=== PATIENT | female | born 1995 | race Caucasian/White ===

== ENCOUNTER → 2018-08-09 16:11 | Outpatient (CLI) | payer MEDICAID, SELFPAY ==
[2018-08-15 14:30] LABS: HPV Reflexed? NOT INDICATED
== END ==
PROVIDERS: Family Provider Family Medicine; PCP Family Medicine; Referring Provider Obstetrics & Gynecology; Visit Provider Obstetrics & Gynecology
DX: Z12.4 Encounter for screening for malignant neoplasm of cervix (principal)
CPT/HCPCS: 88175; G0145

== ENCOUNTER → 2019-05-13 14:40 | Outpatient (CLI) | payer OTHER, SELFPAY ==
[2019-05-13 07:40] VITALS: BMI 20.9
== END ==
PROVIDERS: Family Provider Family Medicine; PCP Family Medicine; Referring Provider Physician Assistant Surgical; Visit Provider Physician Assistant Surgical
DX: J02.9 Acute pharyngitis, unspecified (principal)
CPT/HCPCS: 87070; 87077; 87186

== ENCOUNTER → 2020-03-02 15:03 | Outpatient (CLI) | payer OTHER, SELFPAY ==
[2020-03-02 14:09] VITALS: BMI 20.9
[2020-03-02 16:32] LABS: Absolute Neutrophil Count 9.6 X10^3/uL (2.0-7.7); Basophil# 0.05 X10^3/uL; Basophil% 0.4 % (0-1); Eosinophil# 0.05 X10^3/uL; Eosinophils% 0.4 % (0-5); Hematocrit 39.7 % (37-47); Hemoglobin 13.9 g/dL (12.0-15.0); Lymphocyte % 15.1 % (19-41); Mean Corpuscular Volume 91.3 fL (81-99); Monocyte# 0.94 X10^3/uL; Monocyte% 7.5 % (0-10); NRBC Flagged by Analyzer 0 % (0-5); Neutrophil # 9.57 X10^3/uL (2.7-7.7); Neutrophil % 76.2 % (47-70); Platelet Count 285 K/mm3 (150-450); RBC Distribution Width CV 11.3 % (11.6-14.6); RBC Distribution Width SD 37.6 fl (35.1-43.9); Red Blood Count 4.35 M/mm3 (4.2-5.4); White Blood Count 12.6 K/mm3 (4.4-11.0)
[2020-03-02 18:45] LABS: Amphetamine Urine VISTA NEGATIVE (<1000 ng/mL); Barbiturate Urine VISTA NEGATIVE (< 200 ng/mL); Benzodiazepine Urine VISTA NEGATIVE (< 200 ng/mL); Cocaine Urine VISTA NEGATIVE (< 300 ng/mL); Ecstacy Urine VISTA NEGATIVE (< 500 ng/mL); Methadone Urine VISTA NEGATIVE (< 300 ng/mL); PCP Urine VISTA NEGATIVE (< 25 ng/mL); THC Urine VISTA NEGATIVE (< 50 ng/mL); Vista UDS pH Range 6
[2020-03-02 21:40] LABS: Chlamydia Trachomatis by PCR Negative (Negative); Neisserai gonorrhoeae by PCR Negative (Negative); Probe Check PASS; Sample Adequacy Control PASS; Specimen Processing Control PASS
[2020-03-03 10:53] LABS: HIV - WCH Non-Reactive (Nonreactive); Hepatitis B Surface Antigen Non-Reactive (Nonreactive); Hepatitis C Antibody Non-Reactive (Nonreactive); Rubella IgG 0.2 IU/mL
[2020-03-04 03:25] LABS: Rapid Plasmin Reagin (RPR) NONREACTIVE (NONREACTIVE)
[2020-03-08 12:45] LABS: HPV Reflexed? NOT INDICATED
== END ==
PROVIDERS: PCP Family Medicine; Referring Provider Obstetrics & Gynecology; Visit Provider Obstetrics & Gynecology
DX: Z34.90 Encounter for supervision of normal pregnancy, unspecified, unspecified trimester (principal)
CPT/HCPCS: 36415; 80307; 85025; 86592; 86703; 86762; 86803; 86850; 86900; 86901; 87086; 87088; 87340; 87491; 87591; 88175; G0145

== ENCOUNTER → 2020-04-30 16:16 | Outpatient (CLI) | payer OTHER, SELFPAY ==
[2020-04-02 14:43] VITALS: BMI 20.9
[2020-04-30 15:35] VITALS: BMI 20.9
--- NOTE | 2020-04-30 16:18 | US_ITS ---
STUDY: SECOND AND THIRD TRIMESTER OBSTETRICAL ULTRASOUND REASON FOR EXAM: Female, 24 years old ANATOMY LMP: TECHNIQUE: Transabdominal TECHNICAL QUALITY: Adequate. PRIOR ULTRASOUND: None. FINDINGS: There is a single intrauterine fetus. The fetus is in a breech presentation. There is demonstrated cardiac activity with a heart rate of 155 bpm. There is a normal amniotic fluid volume. The largest amniotic fluid pocket measures 3.6 x 7.8 cm.The placenta is anterior and fundal There are Grade 0 placental changes. The cervix measures 3 cm in length. The bilateral adnexal regions are normal. BIOMETRY: BPD: 4.29 cm: 18 weeks, 6 days HC: 5.52 cm: 19 weeks, 2 days AC: 16.6 cm: 19 weeks, 0 days FL: 2.75 cm: 18 weeks, 2 days CI: 0.77 FL/BPD: 0.64 FL/HC: FL/AC: 0.20 HC/AC: 1.22 age by current US: 18 weeks, 4 days. JENNIFFER by current US: 09/27/2020. Estimated weight: 258 grams, +/- 39 grams, 58 %. age by prior US: weeks, days. JENNIFFER by prior US: . Age by LMP: 19 weeks, 6 days. JENNIFFER by LMP: 09/18/2020. ANATOMY: Cranium: Normal lateral ventricles. Normal choroid plexus. Normal cerebellum. Normal cisterna magna. Normal face, nose and lips. Chest: Normal 4-chamber heart. Abdomen/Pelvis: Normal diaphragm. Normal stomach. Normal abdominal wall. Normal cord insertion. Normal 3 vessel cord. Normal kidneys. Normal bladder. Spine: Normal cervical spine. Normal thoracic spine. Normal lumbar spine. Normal sacrum. Extremities: Normal bilateral upper extremities. Normal bilateral lower extremities. US/OB Anatomy Scan IMPRESSION: Viable intrauterine gestation approximately 18-19 weeks gestational age currently in breech position. No gross anomalies Electronically Signed: Herbert Mancuso MD at 18:02 EDT , Service support ,
== END ==
PROVIDERS: PCP Family Medicine; Referring Provider Obstetrics & Gynecology; Visit Provider Obstetrics & Gynecology
DX: O23.40 Unspecified infection of urinary tract in pregnancy, unspecified trimester (principal); Z3A.00 Weeks of gestation of pregnancy not specified
CPT/HCPCS: 76805; 87086; 87088

== ENCOUNTER → 2020-06-25 14:43 | Outpatient (CLI) | payer OTHER, SELFPAY ==
[2020-05-28 14:38] VITALS: BMI 20.9
[2020-06-25 15:05] LABS: Absolute Lymphocyte Count 1.53 X10^3/uL (0.83-4.51); Absolute Neutrophil Count 8.1 X10^3/uL (2.0-7.7); Basophil# 0.03 X10^3/uL; Basophil% 0.3 % (0-1); Eosinophil# 0.02 X10^3/uL; Eosinophils% 0.2 % (0-5); Hematocrit 35.1 % (37-47); Hemoglobin 12.2 g/dL (12.0-15.0); Lymphocyte # 1.53 X10^3/ul (4.0); Mean Corp Hgb Conc 34.8 g/dL (32-36); Mean Corpuscular Volume 92.1 fL (81-99); Monocyte# 0.44 X10^3/uL; Monocyte% 4.3 % (0-10); NRBC Flagged by Analyzer 0 % (0-5); Neutrophil # 8.14 X10^3/uL (2.7-7.7); Neutrophil % 79.8 % (47-70); Platelet Count 242 K/mm3 (150-450); RBC Distribution Width CV 12.1 % (11.6-14.6); RBC Distribution Width SD 40.5 fl (35.1-43.9); Red Blood Count 3.81 M/mm3 (4.2-5.4); White Blood Count 10.2 K/mm3 (4.4-11.0)
[2020-06-25 15:10] LABS: Glucose Challenge Gest 1H 50g 186 mg/dL (70-140)
== END ==
PROVIDERS: PCP Family Medicine; Referring Provider Obstetrics & Gynecology; Visit Provider Obstetrics & Gynecology
DX: Z13.1 Encounter for screening for diabetes mellitus (principal); Z34.90 Encounter for supervision of normal pregnancy, unspecified, unspecified trimester
CPT/HCPCS: 36415; 82950; 85025

== ENCOUNTER → 2020-07-05 06:51 | Outpatient (CLI) | payer OTHER, SELFPAY ==
[2020-06-25 15:21] VITALS: BMI 28.5
[2020-07-05 07:52] LABS: Glucose GTT-Gestation. Fasting 103 mg/dL (<105)
[2020-07-05 08:50] LABS: Glucose GTT-Gestational 1 Hr 218 mg/dL (<190)
[2020-07-05 10:05] LABS: Glucose GTT-Gestational 2 Hr 169 mg/dL (<165)
[2020-07-05 11:21] LABS: Glucose GTT-Gestational 3 Hr 85 L (<145)
== END ==
PROVIDERS: Referring Provider Obstetrics & Gynecology; Visit Provider Obstetrics & Gynecology
DX: O99.810 Abnormal glucose complicating pregnancy (principal); Z3A.00 Weeks of gestation of pregnancy not specified
CPT/HCPCS: 36415; 82951; 82952

== ENCOUNTER → 2020-07-23 13:19 | Outpatient (CLI) | payer OTHER, SELFPAY ==
[2020-07-09 16:14] VITALS: BMI 29.4
--- NOTE | 2020-07-23 13:22 | US_ITS ---
STUDY: SECOND AND THIRD TRIMESTER OBSTETRICAL ULTRASOUND - LIMITED REASON FOR EXAM: Female, 25 years old GROWTH LMP: 12/13/2019. PRIOR ULTRASOUND: Comparison is made with prior ultrasound dated 04/30/2020. TECHNIQUE: Transabdominal TECHNICAL QUALITY: Adequate. FINDINGS: There is a single intrauterine fetus. The fetus is in a cephalic presentation. There is demonstrated cardiac activity with a heart rate of 155 bpm. There is a normal amniotic fluid volume. The largest amniotic fluid pocket measures 6.47 cm. The amniotic fluid index (PAULETTE) is 16.55 cm. The placenta is anterior in location and is not low lying. There are Grade 1 placental changes. The cervix measures 3.6 cm in length. BIOMETRY: BPD: 8.02 cm: 32 weeks, 1 days HC: 20.28 cm: 31 weeks, 0 days AC: 25.51 cm: 32 weeks, 3 days FL: 5.64 cm: 29 weeks, 4 days Age by LMP: 31 weeks, 6 days. JENNIFFER by LMP: 09/18/2020. age by prior US: 30 weeks, 4 days. JENNIFFER by prior US: 09/27/2020. age by current US: 30 weeks, 6 days. JENNIFFER by current US: 09/25/2020. Estimated weight: 1776 grams, +/- 263 grams, 25 percentile. US/OB Limited With Biometrics IMPRESSION: Single live uterine gestation with a mean gestational age of 30 weeks and 4 days. The measurements obtained today following within the normal expected range. Electronically Signed: Anish Goodwin, at 15:17 EST , Service support ,
== END ==
PROVIDERS: Referring Provider Obstetrics & Gynecology; Visit Provider Obstetrics & Gynecology
DX: O24.419 Gestational diabetes mellitus in pregnancy, unspecified control (principal); Z3A.30 30 weeks gestation of pregnancy
CPT/HCPCS: 76816

== ENCOUNTER → 2020-08-06 15:12 | Outpatient (CLI) | payer OTHER, SELFPAY ==
[2020-08-06 14:37] VITALS: BMI 30.7
[2020-08-06 16:05] LABS: Absolute Lymphocyte Count 2.02 X10^3/uL (0.83-4.51); Absolute Neutrophil Count 8.8 X10^3/uL (2.0-7.7); Basophil# 0.03 X10^3/uL; Basophil% 0.3 % (0-1); Eosinophil# 0.04 X10^3/uL; Eosinophils% 0.3 % (0-5); Hemoglobin 12.6 g/dL (12.0-15.0); Lymphocyte # 2.02 X10^3/ul (4.0); Lymphocyte % 16.8 % (19-41); Mean Corp Hgb Conc 34.1 g/dL (32-36); Mean Corpuscular Hgb 30.8 pg (27.0-32.0); Mean Corpuscular Volume 90.5 fL (81-99); Mean Platelet Vol. 9.2 fl (6.2-12.0); Monocyte# 1.03 X10^3/uL; Monocyte% 8.6 % (0-10); NRBC Flagged by Analyzer 0 % (0-5); Neutrophil # 8.83 X10^3/uL (2.7-7.7); Neutrophil % 73.6 % (47-70); Platelet Count 274 K/mm3 (150-450); RBC Distribution Width CV 12.2 % (11.6-14.6); RBC Distribution Width SD 39.3 fl (35.1-43.9); Red Blood Count 4.09 M/mm3 (4.2-5.4)
[2020-08-06 16:25] LABS: ALB/GLOB Ratio 0.7 RATIO (0.9-2.4); AST(SGOT) 18 U/L (15-37); Alanine Aminotransfer ALT/SGPT 33 U/L (13-56); Albumin, Serum 2.6 g/dL (3.2-5.0); Alkaline Phosphatase 139 U/L (45-117); Anion Gap 7 (5-15); BUN 12 mg/dL (7-18); BUN/Creat Ratio 17.4 RATIO (10-20); Calcium,Total 8.6 mg/dL (8.5-10.1); Chloride 108 mmol/L (98-107); Creatinine, Serum 0.69 mg/dL (0.55-1.02); EST Glomerular Filtration Rate 110 mL/min (>60); Est Glom Filt Rate - Afr Amer 133 mL/min (>60); Globulin 3.7 g/dL (2.2-4.2); Glucose 86 mg/dL (74-106); Potassium 4.5 mmol/L (3.5-5.1); Protein, Total 6.3 g/dL (6.4-8.2); Sodium Level 139 mmol/L (136-145)
[2020-08-06 16:26] LABS: Protein, Urine (Random) 18.3 mg/dL (<11.9); Protein:Creat Ratio 185 mg/g CRE (0-200)
== END ==
PROVIDERS: Referring Provider Obstetrics & Gynecology; Visit Provider Obstetrics & Gynecology
DX: O16.3 Unspecified maternal hypertension, third trimester (principal); Z3A.00 Weeks of gestation of pregnancy not specified
CPT/HCPCS: 36415; 80053; 82570; 84156; 85025

== ENCOUNTER → 2020-08-19 08:58 | Outpatient (CLI) | payer OTHER, SELFPAY ==
[2020-07-09 16:14] VITALS: BMI 29.4
[2020-08-06 14:37] VITALS: BMI 30.7
--- NOTE | 2020-08-19 08:59 | US_ITS ---
STUDY: SECOND AND THIRD TRIMESTER OBSTETRICAL ULTRASOUND - LIMITED REASON FOR EXAM: Female, 25 years old growth LMP: 12/13/2019 PRIOR ULTRASOUND: 07/23/2020 TECHNIQUE: Transabdominal TECHNICAL QUALITY: Adequate. FINDINGS: There is a single intrauterine fetus. The fetus is in a cephalic presentation. There is demonstrated cardiac activity with a heart rate of 162 bpm. There is a normal amniotic fluid volume. The largest amniotic fluid pocket measures 6.5 cm. The amniotic fluid index (PAULETTE) is 15.9 cm. The placenta is anterior in location and is not low lying. There are Grade 1 placental changes. The cervix measures cm in length. BIOMETRY: BPD: 8.5 cm: 34 weeks, 2 days HC: 31.1 cm: 34 weeks, 5 days AC: 32.0 cm: 35 weeks, 6 days FL: 6.3 cm: 32 weeks, 4 days Age by LMP: 35 weeks, 5 days. JENNIFFER by LMP: 09/18/2020. age by current US: 34 weeks, 3 days. JENNIFFER by current US: . Estimated weight: 2510 grams, +/- 371 grams, 23 percentile. Gender: US/OB Limited With Biometrics IMPRESSION: Living intrauterine of 34 weeks 3 days as described above. Electronically Signed: Lukas Bass MD at 13:14 EST Tel , Service support ,
== END ==
PROVIDERS: Referring Provider Obstetrics & Gynecology; Visit Provider Obstetrics & Gynecology
DX: O24.419 Gestational diabetes mellitus in pregnancy, unspecified control (principal); Z3A.00 Weeks of gestation of pregnancy not specified
CPT/HCPCS: 76816

== ENCOUNTER → 2020-08-24 16:59 | Outpatient (CLI) | payer OTHER, SELFPAY ==
[2020-08-19 11:02] VITALS: BMI 31.4
== END ==
PROVIDERS: Referring Provider Obstetrics & Gynecology; Visit Provider Obstetrics & Gynecology
DX: Z34.90 Encounter for supervision of normal pregnancy, unspecified, unspecified trimester (principal); Z3A.36 36 weeks gestation of pregnancy
CPT/HCPCS: 87081

== ENCOUNTER → 2020-09-10 17:34 | Outpatient (CLI) | payer OTHER, SELFPAY ==
[2020-08-19 11:02] VITALS: BMI 31.4
[2020-09-10 14:42] VITALS: BMI 32.2
[2020-09-10 16:00] LABS: Protein, Urine (Random) 48.7 mg/dL (<11.9); Protein:Creat Ratio 205 mg/g CRE (0-200)
== END ==
PROVIDERS: Referring Provider Obstetrics & Gynecology; Visit Provider Obstetrics & Gynecology
DX: O12.10 Gestational proteinuria, unspecified trimester (principal); Z3A.00 Weeks of gestation of pregnancy not specified
CPT/HCPCS: 82570; 84156; 87635; C9803; U0003

== ENCOUNTER 2020-09-21 19:00 | Inpatient (IN) | payer OTHER, SELFPAY ==
[2020-08-19 11:02] VITALS: BMI 31.4
[2020-09-10 14:42] VITALS: BMI 32.2
[2020-09-21 19:28] VITALS: TEMP 37; O2SAT 96
[2020-09-21 19:29] VITALS: BP 139/92; PULSE 96; O2SAT 96
[2020-09-21] MEDS: Lactated Ringers 1,000 ML 50 ML IV (19:40)
--- NOTE | 2020-09-21 19:45 | HP.PCM_ITS ---
- Problem List (1) 36 weeks gestation of Status: Acute Comment: electronic test ordered 08/24/20 (scheduled 09/10/20 @ 4:30) (2) COVID-19 affecting , antepartum Status: Acute Comment: baby ASA (3) GDM (gestational diabetes mellitus) Status: Acute Qualifiers: Comment: Referred to endo. Declines shredder tender consult. Discussed growths q4 weeks. Discussed testing if requires medication. Timing of delivery dependent on diabetic control. (4) Influenza vaccination declined Status: Acute (5) Status: Acute Qualifiers: Comment: genetic, carrier, and ntd screening declined. (6) Rubella non-immune status, antepartum Status: Acute Comment: Needs vaccine PP. (7) Supervision of normal Status: Acute Qualifiers: Comment: PRR Boy! Ewa JENNIFFER 09/18/20 Steve (8) UTI (urinary tract infection), affecting care of mother, antepartum Status: Acute Comment: Repeat urine culture neg History and Physical Date of Admission: 09/21/20 Intake Vital Signs 09/10/20 Height 5 ft 3 in 09/10/20 Weight: 182 lb 09/10/20 BP 114/82 H Intake Visit Reasons: 39 WK OB Chief Complaint: est ob Police Commanding Officer Required: No Is patient in pain?: No Allergies No Known Allergies Allergy (Verified 09/10/20 14:42) Medications vitamin#30 30 mg iron-10 mg iron-folic acid 1 mg-omg3 capsule cap PO 03/02/20 history Confirmed 09/10/20 ondansetron HCl 4 mg tablet 4 mg PO Q8H PRN #60 tab 06/28/20 Rx Confirmed 09/10/20 famotidine 20 mg tablet 20 mg PO BID #60 tab 07/09/20 Rx Confirmed 09/10/20 Last Menstral Period: 12/13/19 Zika: Zika virus screening: Negative : No PFSH PFSH Medical History HPV test positive (Acute) History of abnormal cervical Pap smear (Acute) Family History Father No problems noted. Unknown Diabetes Social History (Updated 09/10/20 @ 15:[address] Luisa Boykin MD) Smoking Status: Never smoker alcohol intake: never substance use type: former substance user caffeine: No what type of physical activity do you participate in: none seatbelt use: always do you feel safe at home: Yes additional social history: Steve- Works for [employer] Patient is a career education teacher Pregancy History 1 Elective abortions Hx Para Spontaneous abortions Hx # Term Pregnancies Ectopic pregnancies Hx # Pregnancies Multiple births # of living children HPI 39 WK OB: Details: KONSTANTIN POE is a 25 year old at 40 weeks presents for induction of labor secondary to GDM A1 well-controlled. Patient recently had an asymptomatic positive Covid test but has been over 10 days since the initial test positivity and is asymptomatic currently. OB Visit JENNIFFER Calculator Estimated Delivery Date Method Current WG Current Estimate 09/18/20 LMP (Certain) 38w 6d Other Estimates 09/24/20 Ultrasound #1 38w 0d Expected Delivery Route/Plan plan IOL by 40 weeks Labor Preferences- CB/BF classes: 08/21/20 labor support person: labor intervention preferences: pain management options preferred: cut cord/dad catch: : PP control planned: discussed possible routes of delivery and associated risks: special requests: Specific Issue/Plans flu vaccine: declines tdap vaccine: Declines rhogam: NA LARC form signed: 06/26 - declines Problem list reviewed and updated with the most current plan of care details and appropriate orders placed. Relevant counseling for the gestational age provided. Continue routine care and follow up unless otherwise noted in visit notes/problem list details Initial Weight: 131 lb Date EGA Weight BP Urine Prot Glucose FHR FuHt Pres Dilation Effaced St Visit Note 03/02/20 11w 3d 131 lb (+0 oz) 120/80 180 SM- CRL 3.7cm cons with lmp SM- CRL 3.7cm cons with lmp, abdominal US 04/02/20 15w 6d 141 lb 8 oz (+10 lb 8 oz) 108/70 Negative Negative 155 GP - denies cramping and bleeding. Patient to schedule anatomy scan. 04/30/20 19w 6d 151 lb 8 oz (+20 lb 8 oz) 130/74 Negative Negative 150 GP - denies cramping and bleeding. Anatomy scan today. Finding out gender. 05/28/20 23w 6d 156 lb 4 oz (+25 lb 4 oz) 130/74 Negative Negative 140 24 GP- denies ctx, LOF, VB, DFM. Having a boy! Considering Ewa for name. GCT next visit. 06/25/20 27w 6d 161 lb 4 oz (+30 lb 4 oz) 128/80 Negative Negative 140 28 GP -no LOF, VB, DFM, ctx. Discussed failed GCT - 3h GCT ordered. Declines TDAP. GP -no LOF, VB, DFM, ctx. Discussed failed GCT - 3h GCT ordered. Declines TDAP. LARC form signed. 07/09/20 29w 6d 167 lb (+36 lb) 122/78 Negative Negative 140 30 GP - no LOF, VB, DFM, ctx. Failed 3h GTT. Seeing Dr. Ramos today. Discussed management of GDM. Discussed surveillance. Discussed timing of delivery. 07/23/20 31w 6d 169 lb 6 oz (+38 lb 6 oz) 120/88 Negative Negative 160 32 GP- no LOF, VB, DFM, ctx. BGTs controlled with diet. Going to [employer] this weekend. Scheduled childbirth classes. 08/06/20 33w 6d 173 lb 2 oz (+42 lb 2 oz) 134/94 Negative Negative 150 34 GP - no LOF, VB, DFM, ctx. BGTs well controlled. GP - no LOF, VB, DFM, ctx. BGTs well controlled. Diastolic BP mild range but no proteinuria. Outpatient labs ordered. 08/19/20 35w 5d 177 lb 4 oz (+46 lb 4 oz) 132/100 104/82 Negative Negative 155 35 GP - no LOF, VB, DFM, ctx. BGTs remain well controlled with diet. GP - no LOF, VB, DFM, ctx. BGTs remain well controlled with diet. Initial BP mild range, but repeat normotensive. 08/24/20 36w 3d 112/82 140 36 SM- no vb lof good fm no regular ctx bs well controlled 08/30/20 37w 2d 181 lb (+50 lb) 138/82 Negative Negative 144 37 Cephalic 1 40 MH No VB, LOF. Good FM. BC well con trolled. 09/10/20 38w 6d 182 lb (+51 lb) 114/82 2+ Negative 140 38 Cephalic 1 50 -1 Sm- no vb lof good fm no regular ctx ACOG First Trimester First Trimester: Desire for , Alcohol, Tobacco Cessation, Illicit/Recreational Drug/Substance Use, Intimate Partner Violence, Barriers to care, Unstable Housing, Communication Barriers, Environmental/Work Hazards, Anticipated Course of Care, Toxoplasmosis Precations, Use of Any medications, Sexual activity, Exercise, Dental Care, Sauna/Hot tub use, Seat Belt use, Childbirth classes/Hospital facilities, , Travel, Indications for US and Screening for Aneuploidy Diagnostics Diagnostics Diagnostics Gest Glucose Tolerance MG/DL 07/05/20 Hgb 12.6 g/dL (12.0-15.0) 08/06/20 Hct 37.0 % (37-47) 08/06/20 Details: HIV: Urine Culture: Sequential Screen: NIPT Screen: ROS Const Reports system reviewed and no additional complaints, except as documented Card Reports system reviewed and no additional complaints, except as documented Resp Reports system reviewed and no additional complaints, except as documented GI Reports system reviewed and no additional complaints, except as documented, Reports nausea Reports system reviewed and no additional complaints, except as documented Musc Reports system reviewed and no additional complaints, except as documented all other systems reviewed and negative Exam Const General: cooperative, healthy appearing, comfortable HENTX Head: normal to inspection Nose: external nose normal Face and sinus: normal facial exam Neck Neck: normal visual inspection, full ROM, no lymphadenopathy Thyroid: thyroid normal Chest Chest palpation & inspection: normal inspection of the chest Resp Effort & Inspection: normal respiratory effort GI Inspection: normal to inspection Palpation: soft, other (gravid uterus) Other: vertex and appropriate size for gestational age Other: Cervical Exam: 50/-2 Extrem General: pedal edema Results POC Urinalysis 2 Dip (Clinic) Office Urine Glucose Negative Last Edit by Lisa Porter on 09/10/20 14:4 8 Office Urine Protein 2+ Last Edit by Lisa Porter on 09/10/20 14:48 Assessment & Plan Problems 1. Supervision of normal Z34.90 PRR Boy! Ewa JENNIFFER 09/18/20 Steve 2. UTI (urinary tract infection), affecting care of mother, antepartum O23.40 Repeat urine culture neg 3. Influenza vaccination declined Z28.21 4. GDM (gestational diabetes mellitus) O24.419 Referred to endo. Declines shredder tender consult. Discussed growths q4 weeks. Discussed testing if requires medication. Timing of delivery dependent on diabetic control. 5. 36 weeks gestation of Z3A.36 electronic test ordered 08/24/20 (scheduled 09/10/20 @ 4:30) 6. Z34.90 genetic, carrier, and ntd screening declined. 7. Rubella non-immune status, antepartum O99.891; Z28.3 Needs vaccine PP. Patient presents IOL, plan management for with Cytotec. Pain management: Plans epidural. GBS negative. Management of any complications: None I have reviewed the [facility] and made any clinically relevant updates. Orders Orders: POC Urinalysis 2 Dip (Clinic) Today Protein+Creatinine Ratio,Urine Today O12.10 Coding Level of Care Code OB Routine Diagnoses Supervision of normal Z34.90 UTI (urinary tract infection), affecting care of mother, antepartum O23.40 Influenza vaccination declined Z28.21 GDM (gestational diabetes mellitus) O24.419 36 weeks gestation of Z3A.36 Z34.90 Rubella non-immune status, antepartum O99.891; Z28.3
[2020-09-21 19:56] LABS: Bedside Glucose 93 mg/dL (70-110)
[2020-09-21] MEDS: miSOPROStol 25 MCG TABLET VAGINAL (20:00)
[2020-09-21 20:05] VITALS: BMI 34.9
[2020-09-21 20:05] LABS: Absolute Lymphocyte Count 1.95 X10^3/uL (0.83-4.51); Absolute Neutrophil Count 5.9 X10^3/uL (2.0-7.7); Basophil# 0.02 X10^3/uL; Basophil% 0.2 % (0-1); Eosinophil# 0.02 X10^3/uL; Eosinophils% 0.2 % (0-5); Hematocrit 32.2 % (37-47); Hemoglobin 11.4 g/dL (12.0-15.0); Lymphocyte # 1.95 X10^3/ul (4.0); Lymphocyte % 22.5 % (19-41); Mean Corp Hgb Conc 35.4 g/dL (32-36); Mean Corpuscular Hgb 31.1 pg (27.0-32.0); Mean Platelet Vol. 9.8 fl (6.2-12.0); Monocyte% 9.2 % (0-10); NRBC Flagged by Analyzer 0 % (0-5); Neutrophil # 5.86 X10^3/uL (2.7-7.7); Neutrophil % 67.7 % (47-70); Platelet Count 214 K/mm3 (150-450); RBC Distribution Width SD 41.4 fl (35.1-43.9); Red Blood Count 3.66 M/mm3 (4.2-5.4); White Blood Count 8.7 K/mm3 (4.4-11.0)
[2020-09-21 20:17] VITALS: BP 137/89; PULSE 93
[2020-09-21] MEDS: Lactated Ringers 500 ML 999 ML IV (20:35)
[2020-09-21 21:21] LABS: Bedside Glucose 72 mg/dL (70-110)
[2020-09-21 23:59] VITALS: TEMP 36.7
[2020-09-22] VITALS (65 sets, daily range): BP systolic 111–243; BP diastolic 60–146; PULSE 74–152; TEMP 35.7–38.3; O2SAT 93–100
[2020-09-22] MEDS: miSOPROStol 50 MCG TABLET VAGINAL (00:06)
[2020-09-22 01:11] LABS: Bedside Glucose 90 mg/dL (70-110)
[2020-09-22 05:32] LABS: ROM Internal Control Test YES-OK TO RESULT pt. (Internal QC); ROM Patient Test POSITIVE (Negative)
[2020-09-22 06:31] LABS: Bedside Glucose 77 mg/dL (70-110)
[2020-09-22 07:56] LABS: Bedside Glucose 80 mg/dL (70-110)
[2020-09-22] MEDS: Oxytocin 30 units/NS 500 ml 30 UNITS/500 ML IV.SOLN IV (08:30)
[2020-09-22 12:21] LABS: Bedside Glucose 93 mg/dL (70-110)
[2020-09-22] MEDS: Lactated Ringers 500 ML 999 ML IV ×2 (14:38→23:22)
[2020-09-22] MEDS: Lactated Ringers 1,000 ML 200 ML IV ×2 (15:09→19:27)
[2020-09-22] MEDS: fentaNYL-bupivacaine (epidural) 100 ML BAG EPIDURAL ×2 (15:47→20:55)
[2020-09-22 16:35] LABS: Bedside Glucose 100 mg/dL (70-110)
[2020-09-22] MEDS: Ondansetron 4 MG/2 ML Vial IV (19:23)
[2020-09-22 20:25] LABS: Bedside Glucose 112 mg/dL (70-110)
[2020-09-22] MEDS: 0.9% Saline Lock 10 ML Syringe IV (21:04)
[2020-09-22 23:01] LABS: Bedside Glucose 97 mg/dL (70-110)
[2020-09-22 23:01] LABS: Bedside Glucose 96 mg/dL (70-110)
[2020-09-22 23:36] LABS: Bedside Glucose 90 mg/dL (70-110)
[2020-09-22] MEDS: Acetaminophen 500 MG Tablet PO (23:45)
[2020-09-23] VITALS (60 sets, daily range): BP systolic 99–155; BP diastolic 55–108; PULSE 90–162; RESP 16–21; TEMP 36.5–39.6; O2SAT 83–100
[2020-09-23] LABS: Bedside Glucose 104 mg/dL (70-110)
--- NOTE | 2020-09-23 | PLAC_PTH ---
PATIENT: KONSTANTIN MCLEAN LOC: WP U#:[id number] AGE/SX: 25/F ROOM: WP017 RE09/21/[address]: Dr. Luisa Boykin MD : 1995 BED: 1 DIS: 09/25/2020 SPEC #: [id number] RECD: 09/23/20 09:13 STATUS: VASU REYifan #: [id number] BOB: 09/23/20 00:[address]: Luisa Boykin DEPT: SURGICAL PATHOLOGY RECD BY: Miguel Angel Yarbrough ENTERED: 09/23/20 12:35 SP TYPE: PLACENTA OTHR DR: No Primary Care Phys Tissues: Placenta, NOS Procedures: Surgery Specimen Level V HEADER OPERATION: Primary section PRE-OP DIAGNOSIS: Suspected triple I TISSUE SUBMITTED: Placenta MICROSCOPIC DIAGNOSIS Placenta: Placental disc - third trimester placenta (537 gm). - Moderate acute vasculitis of subamniotic blood vessels. Membranes - moderate to marked acute chorioamnionitis. - Submembranous hematoma. Umbilical cord - three blood vessels and moderate acute funisitis. SJ:earl 09/27/2020 MICROSCOPIC DESCRIPTION Slides are reviewed. GROSS DESCRIPTION SPECIMEN: PLACENTA / CLINICAL INFORMATION: A. Weight: 3.505 kg B. Gestational Age: 40 weeks C. Sex: Male PLACENTAL WEIGHT (POST FIXATION): 537 gm PLACENTAL DIMENSIONS: 20 x 18 x 3 cm PLACENTAL SHAPE: Usual ovoid PLACENTAL WEIGHT FOR GESTATIONAL AGE: Within 10-99th percentile MEMBRANES - Present A. Insertion: Marginal B. Site of rupture from edge: At edge of placental disc C. Color of membrane: Antonio-coleman D. Abnormalities: There is a submembranous hematoma present in the placental disc measuring 9 x 7 x 2 cm. UMBILICAL CORD - Present A. Color: Antonio-coleman B. Insertion: Eccentric C. Length: 53 cm D. Diameter: 1.5 cm E. Number of vessels: Three F. Abnormalities: None PLACENTAL DISC - Present A. Color of surface: Antonio-coleman B. surface abnormalities: None C. Maternal cotyledons: Intact with minimal tears D. Attached retro placental clot: No clot E. Cut surface: Dark red and spongy F. Lesions: None G. Separate clot: Absent SECTIONS SUBMITTED: 1. Umbilical cord ( end notched) 2. Umbilical cord, placental end 3. Membrane roll, hematoma 4. Placental disc, and maternal surfaces 5. Placental disc, and maternal surfaces 6. Placental disc, and maternal surfaces AM:earl 09/24/20 TC:2 CPT: 88102
[2020-09-23] MEDS: Ondansetron 4 MG/2 ML Vial IV ×2 (00:06→06:41)
[2020-09-23 01:06] LABS: Bedside Glucose 105 mg/dL (70-110)
[2020-09-23] MEDS: Lactated Ringers 500 ML 999 ML IV (01:29)
[2020-09-23] MEDS: fentaNYL-bupivacaine (epidural) 100 ML BAG EPIDURAL (01:45)
[2020-09-23] MEDS: Lactated Ringers 1,000 ML 200 ML IV (02:02)
[2020-09-23] MEDS: Sodium Citrate/Citric Acid 30 ML UDC PO (04:00)
[2020-09-23 04:06] LABS: Bedside Glucose 108 mg/dL (70-110)
[2020-09-23 04:06] LABS: Bedside Glucose 104 mg/dL (70-110)
[2020-09-23] MEDS: Methylergonovine 0.2 MG/ML Ampul IM (04:31)
--- NOTE | 2020-09-23 05:10 | PCM.OPRPT ---
Problem List (1) COVID-19 affecting , antepartum Status: Acute Comment: baby ASA (2) 36 weeks gestation of Status: Acute Comment: electronic test ordered 08/24/20 (scheduled 09/10/20 @ 4:30) (3) GDM (gestational diabetes mellitus) Status: Acute Qualifiers: Comment: Referred to endo. Declines business applications specialist consult. Discussed growths q4 weeks. Discussed testing if requires medication. Timing of delivery dependent on diabetic control. (4) Rubella non-immune status, antepartum Status: Acute Comment: Needs vaccine PP. (5) Influenza vaccination declined Status: Acute (6) UTI (urinary tract infection), affecting care of mother, antepartum Status: Acute Comment: Repeat urine culture neg (7) Status: Acute Qualifiers: Comment: genetic, carrier, and ntd screening declined. (8) Supervision of normal Status: Acute Qualifiers: Comment: PRR Boy! Ewa JENNIFFER 09/18/20 Steve Delivery Classification: GABRIELA Final JENNIFFER: 09/18/20 Gestational age: 40 Weeks and 5 Days superintendent construction: Zeyad Mac Type of Anesthesia:: Epidural Special Medications: Ampicillin, Gentamicin, clindamycin Date of Procedure: 09/23/20 Pre-Operative Diagnosis: Term , induction of labor for diet-controlled gestational diabetes, suspected intrapartum intraamniotic infection, failed forceps delivery Post-Operative Diagnosis: Same Indications: 25-year-old at 40 weeks gestation admitted for induction of labor for diet-controlled gestational diabetes. During labor, she developed signs and symptoms of infection and was started on antibiotics for suspected intrapartum intraamniotic infection. The patient became complete and began pushing. tachycardia was noted to become progressively worse into the 190s with minimal variability. Patient was pushing with good maternal effort, but minimal descent had initially been noted. Recommendation was made to proceed with a trial of a forceps assisted vaginal delivery. Forceps were applied and 1 contraction with 3 pulls was attempted and no descent was noted. The recommendation was made to proceed with a primary . The risk, benefits, indications, and alternatives to the procedure were discussed with the patient including bleeding, infection, and both visceral or vascular injury. She voiced understanding and agreed to proceed Indications for : Nonreassuring Status, Failed forceps extraction, Suspected chorioamnionitis (Suspected Triple I) Description of Procedure: Patient had tachycardia into the 190s with minimal variability. Recommendation was made to proceed with a forceps assisted vaginal delivery. The maternal bladder had just been changed and Appiah catheter was removed. Additional help was called to the room. Coppersmith Helper was called to the room. Anesthesia level was found to be adequate. Angel-Kelsey forceps were applied without difficulty and placement was noted to be correct. 1 contraction and 3 pulls were attempted and no descent was noted. The recommendation was made to proceed with the primary . The patient was transferred to the operating room. Epidural was dosed for spinal anesthesia without difficulty. Appiah catheter was placed. The patient was placed in the dorsal supine position with leftward tilt. Patient was prepped and draped in the normal sterile fashion. Pfannenstiel skin incision was made with the scalpel and carried through to the underlying layer of fascia with the scalpel. Fascia was nicked in the midline and the incision extended laterally. The rectus bellies were dissected off superiorly and inferiorly with out complication both sharply and bluntly. The peritoneum was entered digitally. The incision was stretched and a low transverse uterine incision was made with the scalpel. The head was noted to be occiput posterior and asynclitic at this time. The 's head was delivered atraumatically followed by the anterior and posterior shoulders without complication the rest of the delivered. The cord was clamped and cut and the infant was handed off to awaiting nurse. The placenta was delivered spontaneously immediately following and was noted to be intact and have a three-vessel cord. The uterus was exteriorized cleared of all clots and debris, and the incision was closed in a double layer closure using #1 Monocryl. Uterine atony was noted and a dose of Methergine was given. Tone was then noted to improve significantly. The ovaries and fallopian tubes were noted to be within normal limits. The uterus was returned to the maternal abdomen and gutters were cleared of all clots and debris. The peritoneum was closed with 3-0 Monocryl in a running fashion. Gloves were changed prior to fascial closure. Fascia was closed with 0 PDS in a running fashion. Subcutaneous tissue was copiously irrigated and the skin was closed with 3-0 Monocryl in a subcuticular fashion. Mepilex dressing was applied without complication. Patient was taken to recovery in stable condition. Amniotic Membrane Rupture Type: Spontaneous Amniotic Fluid Description: Clear Placenta Disposition: Sent to Pathology Specimen(s) sent to pathology: Placenta Drain: Appiah to straight drain Fluids Replaced: 600 Cord Entanglement: None Cord Vessel Description: 3 Vessels Esitmated Blood Loss (ml): 500 Gender: Male Delayed cord clamping: No Antibiotic Given: Clindamycin 600mg IV x1 and Gentamicin 1.5mg/kg IV x1 Pt instructed on risks of surgery: Bleeding, Anesthesia Risks, Infection, Injury to surrounding structure(s) including bowel and bladder Complications: None - Admit VTE Documentation VTE Present on Admission: No VTE Mechan Device Prophylaxis: SCD's VTE Pharm Prophylaxis ordered?: Yes Multi Select Codes - Urinary/Genital Urinary/Genital CPT Codes: 06645 Delivery [facility]
--- NOTE | 2020-09-23 05:19 | DCINST_ITS ---
Discharge Diet: No Restrictions Discharge Activity: May Not Drive - for 2 weeks or while taking narcotic pain meds., May Shower, May Take a Tub Bath - in 7 days. May resume sexual activity in: 4-6 weeks Lifting Restrictions: 20 pounds Additional Activity Instructions:: Nothing in the vagina for 4-6 weeks. You may return to work/school in 6 weeks. Call your doctor if your incision/area has: Continuous Slow Oozing, Sudden Increased Bleeding, Increased Pain/ Swelling, Increased Redness, Foul Smelling Discharge Call your doctor if you observe: Fever of 101 or Higher Suture Line Care: Avoid Pulling/Pushing, Avoid Pinching/Bending Additional Instructions: If you experience any of the following, contact your healthcare provider. * Bleeding that soaks a pad every hour for 2 hours * Fever 100.4 or higher * Unrelieved incision or abdominal pain * Swelling, redness, discharge or bleeding from your incision or episiotomy site * Your incision begins to separate * Problems urinating (including inability to urinate or burning while urinating). * Visual changes * Severe headache * Flu-like symptoms * Pain or redness in one of both of your breasts * Pain, warmth, tenderness or swelling in your legs, especially the calf area * Frequent nausea and vomiting * Symptoms of depression or anxiety If you experience any of the following, call 911 or go to the nearest Emergency Room. * Chest pain * Problems breathing * Seizure activity * Partial or complete paralysis of a body part, slurred speech, weakness or drooping of the face, or a sudden inability to walk or hold your balance Allergies/Adverse Reactions: Allergies No Known Allergies Allergy (Verified 09/10/20 14:42) Medications to take at Discharge vitamin#30 30 mg iron-10 mg iron-folic acid 1 mg-omg3 capsule 1 cap PO DAILY 03/02/20 ondansetron HCl 4 mg tablet 4 mg PO Q8H PRN #60 tab 06/28/20 Famotidine 20 mg PO BID 09/21/20 Follow-Up: Call to make an appointment with your doctor for an incision check in 1-2 weeks. You will also need a 6 week post- follow up appointment. Test results from this visit will be discussed in further detail at your follow- up appointment, if applicable. Primary Care Physician: Care Physician,No Primary [Primary Care Provider] -
[2020-09-23] MEDS: Oxytocin 30 units/NS 500 ml 30 UNITS/500 ML IV.SOLN 167 UNITS IV (05:30)
[2020-09-23] MEDS: Lactated Ringers 1,000 ML 999 ML IV (05:30)
[2020-09-23 05:36] LABS: Bedside Glucose 98 mg/dL (70-110)
[2020-09-23] MEDS: Acetaminophen 500 MG Tablet 1000 MG PO ×3 (06:01→18:11)
[2020-09-23] MEDS: Lactated Ringers 1,000 ML 100 ML IV (06:31)
[2020-09-23 06:55] LABS: Bedside Glucose 99 mg/dL (70-110)
[2020-09-23] MEDS: Senna/Docusate Sodium 1 Tablet PO (09:33)
[2020-09-23] MEDS: Ketorolac 30 MG/ML Syringe IV ×2 (11:13→18:10)
--- NOTE | 2020-09-23 13:11 | NURSING ---
This nursing service administrator reviewed the documentation completed by Mary Kay Huntley, student nurse and was present for all medication administrations.
[2020-09-23] MEDS: Enoxaparin 40 MG/0.4 ML Syringe SC (16:38)
[2020-09-23] MEDS: 0.9% Saline Lock 10 ML Syringe IV ×3 (18:10→21:40)
[2020-09-24] VITALS (8 sets, daily range): BP systolic 114–139; BP diastolic 76–91; PULSE 87–126; RESP 16–20; TEMP 36.3–36.9; O2SAT 96–98
[2020-09-24] MEDS: 0.9% Saline Lock 10 ML Syringe IV ×5 (00:22→06:55)
[2020-09-24] MEDS: Ketorolac 30 MG/ML Syringe IV ×2 (00:22→06:03)
[2020-09-24] MEDS: Acetaminophen 500 MG Tablet 1000 MG PO ×4 (00:22→18:15)
--- NOTE | 2020-09-24 01:03 | NURSING ---
pt missed hat when voiding, unable to determine amount
[2020-09-24 06:27] LABS: Hemoglobin 9.2 g/dL (12.0-15.0); Mean Corp Hgb Conc 34.1 g/dL (32-36); Mean Corpuscular Hgb 30.6 pg (27.0-32.0); Mean Corpuscular Volume 89.7 fL (81-99); Mean Platelet Vol. 9.6 fl (6.2-12.0); Platelet Count 164 K/mm3 (150-450); RBC Distribution Width CV 13.5 % (11.6-14.6); RBC Distribution Width SD 44.3 fl (35.1-43.9); Red Blood Count 3.01 M/mm3 (4.2-5.4); White Blood Count 12.6 K/mm3 (4.4-11.0)
--- NOTE | 2020-09-24 08:08 | PCM.PN.OB ---
Patient Problems: Active and Suspected Problems (Last Reviewed 09/10/20 @ 14:43 by Lisa Porter) COVID-19 affecting , antepartum (Acute) baby ASA 36 weeks gestation of (Acute) electronic test ordered 08/24/20 (scheduled 09/10/20 @ 4:30) GDM (gestational diabetes mellitus) (Acute) Referred to endo. Declines monitor and storage bin tender consult. Discussed growths q4 weeks. Discussed testing if requires medication. Timing of delivery dependent on diabetic control. Rubella non-immune status, antepartum (Acute) Needs vaccine PP. Influenza vaccination declined (Acute) UTI (urinary tract infection), affecting care of mother, antepartum (Acute) Repeat urine culture neg (Acute) genetic, carrier, and ntd screening declined. Supervision of normal (Acute) PRR Boy! Ewa JENNIFFER 09/18/20 Steve Subjective: Patient doing well without complaints. Tolerating PO. Ambulating and voiding without difficulty. Breast feeding well. Denies chest pain, shortness of breath, calf pain/swelling, fevers, chills, lightheadedness. Objective: Laboratory Tests 09/24/20 09/23/20 09/23/20 Range/Units 06:10 05:50 04:14 WBC 12.6 H (4.4-11.0) K/mm3 RBC 3.01 L (4.2-5.4) M/mm3 Hgb 9.2 L (12.0-15.0) g/dL Hct 27.0 L (37-47) % MCV 89.7 (81-99) fL MCH 30.6 (27.0-32.0) pg MCHC 34.1 (32-36) g/dL RDW Std Deviation 44.3 H (35.1-43.9) fl RDW Coeff of Khloe 13.5 (11.6-14.6) % Plt Count 164 (150-450) K/mm3 MPV 9.6 (6.2-12.0) fl Immature Gran % (Auto) (0.0-0.9) % Neut % (Auto) (47-70) % Lymph % (Auto) (19-41) % [place] % (Auto) (0-10) % Eos % (Auto) (0-5) % Baso % (Auto) (0-1) % Absolute Neuts (auto) (2.0-7.7) X10^3/uL Absolute Lymphs (auto) (0.83-4.51) X10^3/uL Nucleated RBC % (0-5) % Vag Amniotic Fld Detect (Negative) POC Glucose 99 98 (70-110) mg/dL Blood Type Antibody Screen 09/23/20 09/23/20 09/23/20 Range/Units 02:58 01:57 00:59 WBC (4.4-11.0) K/mm3 RBC (4.2-5.4) M/mm3 Hgb (12.0-15.0) g/dL Hct (37-47) % MCV (81-99) fL MCH (27.0-32.0) pg MCHC (32-36) g/dL RDW Std Deviation (35.1-43.9) fl RDW Coeff of Khloe (11.6-14.6) % Plt Count (150-450) K/mm3 MPV (6.2-12.0) fl Immature Gran % (Auto) (0.0-0.9) % Neut % (Auto) (47-70) % Lymph % (Auto) (19-41) % [place] % (Auto) (0-10) % Eos % (Auto) (0-5) % Baso % (Auto) (0-1) % Absolute Neuts (auto) (2.0-7.7) X10^3/uL Absolute Lymphs (auto) (0.83-4.51) X10^3/uL Nucleated RBC % (0-5) % Vag Amniotic Fld Detect (Negative) POC Glucose 104 108 105 (70-110) mg/dL Blood Type Antibody Screen 09/22/20 09/22/20 09/22/20 Range/Units 23:55 23:02 21:59 WBC (4.4-11.0) K/mm3 RBC (4.2-5.4) M/mm3 Hgb (12.0-15.0) g/dL Hct (37-47) % MCV (81-99) fL MCH (27.0-32.0) pg MCHC (32-36) g/dL RDW Std Deviation (35.1-43.9) fl RDW Coeff of Khloe (11.6-14.6) % Plt Count (150-450) K/mm3 MPV (6.2-12.0) fl Immature Gran % (Auto) (0.0-0.9) % Neut % (Auto) (47-70) % Lymph % (Auto) (19-41) % [place] % (Auto) (0-10) % Eos % (Auto) (0-5) % Baso % (Auto) (0-1) % Absolute Neuts (auto) (2.0-7.7) X10^3/uL Absolute Lymphs (auto) (0.83-4.51) X10^3/uL Nucleated RBC % (0-5) % Vag Amniotic Fld Detect (Negative) POC Glucose 104 90 96 (70-110) mg/dL Blood Type Antibody Screen 09/22/20 09/22/20 09/22/20 Range/Units 21:02 19:59 16:16 WBC (4.4-11.0) K/mm3 RBC (4.2-5.4) M/mm3 Hgb (12.0-15.0) g/dL Hct (37-47) % MCV (81-99) fL MCH (27.0-32.0) pg MCHC (32-36) g/dL RDW Std Deviation (35.1-43.9) fl RDW Coeff of Khloe (11.6-14.6) % Plt Count (150-450) K/mm3 MPV (6.2-12.0) fl Immature Gran % (Auto) (0.0-0.9) % Neut % (Auto) (47-70) % Lymph % (Auto) (19-41) % [place] % (Auto) (0-10) % Eos % (Auto) (0-5) % Baso % (Auto) (0-1) % Absolute Neuts (auto) (2.0-7.7) X10^3/uL Absolute Lymphs (auto) (0.83-4.51) X10^3/uL Nucleated RBC % (0-5) % Vag Amniotic Fld Detect (Negative) POC Glucose 97 112 H 100 (70-110) mg/dL Blood Type Antibody Screen 09/22/20 09/22/20 09/22/20 Range/Units 12:13 07:51 05:10 WBC (4.4-11.0) K/mm3 RBC (4.2-5.4) M/mm3 Hgb (12.0-15.0) g/dL Hct (37-47) % MCV (81-99) fL MCH (27.0-32.0) pg MCHC (32-36) g/dL RDW Std Deviation (35.1-43.9) fl RDW Coeff of Khloe (11.6-14.6) % Plt Count (150-450) K/mm3 MPV (6.2-12.0) fl Immature Gran % (Auto) (0.0-0.9) % Neut % (Auto) (47-70) % Lymph % (Auto) (19-41) % [place] % (Auto) (0-10) % Eos % (Auto) (0-5) % Baso % (Auto) (0-1) % Absolute Neuts (auto) (2.0-7.7) X10^3/uL Absolute Lymphs (auto) (0.83-4.51) X10^3/uL Nucleated RBC % (0-5) % Vag Amniotic Fld Detect (Negative) POC Glucose 93 80 77 (70-110) mg/dL Blood Type Antibody Screen 09/22/20 09/22/20 09/21/20 Range/Units 05:00 01:03 21:02 WBC (4.4-11.0) K/mm3 RBC (4.2-5.4) M/mm3 Hgb (12.0-15.0) g/dL Hct (37-47) % MCV (81-99) fL MCH (27.0-32.0) pg MCHC (32-36) g/dL RDW Std Deviation (35.1-43.9) fl RDW Coeff of Khloe (11.6-14.6) % Plt Count (150-450) K/mm3 MPV (6.2-12.0) fl Immature Gran % (Auto) (0.0-0.9) % Neut % (Auto) (47-70) % Lymph % (Auto) (19-41) % [place] % (Auto) (0-10) % Eos % (Auto) (0-5) % Baso % (Auto) (0-1) % Absolute Neuts (auto) (2.0-7.7) X10^3/uL Absolute Lymphs (auto) (0.83-4.51) X10^3/uL Nucleated RBC % (0-5) % Vag Amniotic Fld Detect POSITIVE H (Negative) POC Glucose 90 72 (70-110) mg/dL Blood Type Antibody Screen 09/21/20 09/21/20 09/21/20 Range/Units 19:47 19:40 19:40 WBC 8.7 (4.4-11.0) K/mm3 RBC 3.66 L (4.2-5.4) M/mm3 Hgb 11.4 L (12.0-15.0) g/dL Hct 32.2 L (37-47) % MCV 88.0 (81-99) fL MCH 31.1 (27.0-32.0) pg MCHC 35.4 (32-36) g/dL RDW Std Deviation 41.4 (35.1-43.9) fl RDW Coeff of Khloe 13.0 (11.6-14.6) % Plt Count 214 (150-450) K/mm3 MPV 9.8 (6.2-12.0) fl Immature Gran % (Auto) 0.200 (0.0-0.9) % Neut % (Auto) 67.7 (47-70) % Lymph % (Auto) 22.5 (19-41) % [place] % (Auto) 9.2 (0-10) % Eos % (Auto) 0.2 (0-5) % Baso % (Auto) 0.2 (0-1) % Absolute Neuts (auto) 5.9 (2.0-7.7) X10^3/uL Absolute Lymphs (auto) 1.95 (0.83-4.51) X10^3/uL Nucleated RBC % 0 (0-5) % Vag Amniotic Fld Detect (Negative) POC Glucose 93 (70-110) mg/dL Blood Type O POSITIVE Antibody Screen NEGATIVE - Physical Exam Vitals/I&O's: Vital Signs Temp Pulse Resp BP Pulse Ox 98 F 95 16 114/82 H 96 09/24/20 08:02 09/24/20 08:02 09/24/20 08:02 09/24/20 08:02 09/24/20 04:32 Oxygen Flow Rate (L/min) 2 Oxygen Delivery Method Room Air Weight: 185 lb Body Mass Index (BMI) 34.9 Intake and Output for Last 24 Hours 09/22/20 09/23/20 09/24/20 23:59 23:59 23:59 Intake Total 4445.92 / 4445.92 3639 / 3639 306 / 306 Output Total 300 / 300 1675 / 1675 800 / 800 Balance 4145.92 / 4145.92 1963 / 1963 -494 / -494 General: Alert, Oriented x3, Cooperative, No apparent distress, Well developed, Well nourished HEENT: Atraumatic, PERRLA, EOMI, Normocephalic Neck: Supple, No JVD Lungs: Normal air movement Cardiovascular: Regular rate Abdomen: Soft, Non Tender, Non-Distended, - - incision c/d/i with dressing in place, fundus firm Extremities: No Calf Tenderness, Edema - equal bilaterally Neurological: Cranial nerves II-XII grossly intact, Neuro grossly intact Psych/Mental Status: Normal Affect, Appropriate Laboratory Results 09/24/20 06:10: WBC 12.6 H, RBC 3.01 L, Hgb 9.2 L, Hct 27.0 L, MCV 89.7, MCH 30.6, MCHC 34.1, RDW Std Deviation 44.3 H, RDW Coeff of Khloe 13.5, Plt Count 164, MPV 9.6 Current Medications Acetaminophen (Acetaminophen 500 Mg Tablet) 1,000 mg PO Q6 [facility] Last Admin: 09/24/20 06:14 Dose: 1,000 mg Documented by: Bisacodyl (Bisacodyl 10 Mg Suppository) 10 mg RECTAL UD PRN PRN Reason: If no BM Dextrose (Dextrose 50%-Water 25 Gm/50 Ml Disp.Syrin) 0 gm IV X1 PRN; Protocol PRN Reason: Hypoglycemia Enoxaparin Sodium (Enoxaparin 40 Mg/0.4 Ml Syringe) 40 mg SC DAILY [facility] Last Admin: 09/23/20 16:38 Dose: 40 mg Documented by: Glucagon (Glucagon 1 Mg/Ml Syringe) 1 mg IM .X1 PRN PRN Reason: Hypoglycemia Hydrocortisone (Hydrocortisone 2.5% Crm) 1 applic TOPICAL TID PRN PRN; Protocol PRN Reason: Discomfort Ibuprofen (Ibuprofen 600 Mg Tablet) 600 mg PO Q6H IVANNA Methylergonovine Maleate (Methylergonovine 0.2 Mg/Ml Ampul) 0.2 mg IM X1 PRN PRN Reason: Uterine Atony Last Admin: 09/23/20 04:31 Dose: 0.2 mg Documented by: Ondansetron HCl (Ondansetron 4 Mg/2 Ml Vial) 4 mg IV Q4H PRN PRN PRN Reason: Nausea Last Admin: 09/23/20 06:41 Dose: 4 mg Documented by: Oxycodone HCl (Oxycodone 5 Mg Tablet) 5 - 10 mg PO Q4H PRN PRN PRN Reason: Pain Score 4-10 Prochlorperazine Edisylate (Prochlorperazine 10 Mg/2 Ml Vial) 10 mg IV Q6H PRN PRN PRN Reason: NAUSEA Senna/Docusate Sodium (Senna/Docusate Sodium 1 Tablet) 1 - 2 tablet PO DAILY IVANNA Last Admin: 09/23/20 09:33 Dose: 1 tablet Documented by: Simethicone (Simethicone 80 Mg Tablet) 80 mg PO PCHS PRN PRN Reason: Indigestion/stomach pain Last Admin: 09/24/20 07:02 Dose: 80 mg Documented by: Sodium Chloride (0.9% Saline Lock 10 Ml Syringe) 5 - 15 ml IV UD PRN PRN Reason: SALINE FLUSH Last Admin: 09/24/20 06:55 Dose: 10 ml Documented by: Medical Necessity - Tobacco Use Smoking Status: Former smoker Assessment/Plan All Active Problems (Last Reviewed 09/10/20 @ 14:43 by Lisa Porter) COVID-19 affecting , antepartum (Acute) 36 weeks gestation of (Acute) GDM (gestational diabetes mellitus) (Acute) Rubella non-immune status, antepartum (Acute) Influenza vaccination declined (Acute) UTI (urinary tract infection), affecting care of mother, antepartum (Acute) (Acute) Supervision of normal (Acute) Pharyngitis, acute (Resolved) s/p LTCS PPD # 1 1. routine post care 2. breast feeding- support given 3. rh positive 4. rubella immune 5. Acute blood loss anemia - iron ordered
[2020-09-24] MEDS: Senna/Docusate Sodium 1 Tablet PO (10:42)
[2020-09-24] MEDS: Ferrous Sulfate 325 MG Tablet PO ×2 (10:42→18:16)
[2020-09-24] MEDS: Enoxaparin 40 MG/0.4 ML Syringe SC (10:42)
[2020-09-24] MEDS: Ibuprofen 600 MG Tablet PO ×2 (12:17→18:14)
[2020-09-25] MEDS: Ibuprofen 600 MG Tablet PO ×2 (00:02→06:19)
[2020-09-25] MEDS: Acetaminophen 500 MG Tablet 1000 MG PO ×2 (00:23→06:19)
[2020-09-25 01:33] VITALS: BP 130/98; PULSE 104
[2020-09-25 01:34] VITALS: BP 122/79; PULSE 99
[2020-09-25 01:38] VITALS: BP 122/87; PULSE 99; RESP 18; TEMP 36.8
--- NOTE | 2020-09-25 03:17 | PCM.PN.OB ---
Patient Problems: Active and Suspected Problems (Last Reviewed 09/10/20 @ 14:43 by Lisa Porter) COVID-19 affecting , antepartum (Acute) baby ASA 36 weeks gestation of (Acute) electronic test ordered 08/24/20 (scheduled 09/10/20 @ 4:30) GDM (gestational diabetes mellitus) (Acute) Referred to endo. Declines service agent consult. Discussed growths q4 weeks. Discussed testing if requires medication. Timing of delivery dependent on diabetic control. Rubella non-immune status, antepartum (Acute) Needs vaccine PP. Influenza vaccination declined (Acute) UTI (urinary tract infection), affecting care of mother, antepartum (Acute) Repeat urine culture neg (Acute) genetic, carrier, and ntd screening declined. Supervision of normal (Acute) PRR Boy! Damienclaudio JENNIFFER 09/18/20 Steve Subjective: Patient doing well without complaints. Tolerating PO. Ambulating and voiding without difficulty. feeding well. Denies chest pain, shortness of breath, calf pain/swelling, fevers, chills, lightheadedness. - Physical Exam Vitals/I&O's: Vital Signs Temp Pulse Resp BP Pulse Ox 98.2 F 99 18 122/87 H 98 09/25/20 01:38 09/25/20 01:38 09/25/20 01:38 09/25/20 01:38 09/24/20 20:10 Oxygen Flow Rate (L/min) 2 Oxygen Delivery Method Room Air Weight: 185 lb Body Mass Index (BMI) 34.9 Intake and Output for Last 24 Hours 09/23/20 09/24/20 09/25/20 23:59 23:59 23:59 Intake Total 3639 / 3639 306 / 306 Output Total 1675 / 1675 800 / 800 Balance 1963 / 1963 -494 / -494 General: Alert, Oriented x3 Laboratory Results 09/24/20 06:10: WBC 12.6 H, RBC 3.01 L, Hgb 9.2 L, Hct 27.0 L, MCV 89.7, MCH 30.6, MCHC 34.1, RDW Std Deviation 44.3 H, RDW Coeff of Khloe 13.5, Plt Count 164, MPV 9.6 Current Medications Acetaminophen (Acetaminophen 500 Mg Tablet) 1,000 mg PO Q6 IVANNA Last Admin: 09/25/20 00:23 Dose: 1,000 mg Documented by: Bisacodyl (Bisacodyl 10 Mg Suppository) 10 mg RECTAL UD PRN PRN Reason: If no BM Dextrose (Dextrose 50%-Water 25 Gm/50 Ml Disp.Syrin) 0 gm IV X1 PRN; Protocol PRN Reason: Hypoglycemia Enoxaparin Sodium (Enoxaparin 40 Mg/0.4 Ml Syringe) 40 mg SC DAILY [facility] Last Admin: 09/24/20 10:42 Dose: 40 mg Documented by: Ferrous Sulfate (Ferrous Sulfate 325 Mg Tablet) 325 mg PO BIDCM [facility] Last Admin: 09/24/20 18:16 Dose: 325 mg Documented by: Glucagon (Glucagon 1 Mg/Ml Syringe) 1 mg IM .X1 PRN PRN Reason: Hypoglycemia Hydrocortisone (Hydrocortisone 2.5% Crm) 1 applic TOPICAL TID PRN PRN; Protocol PRN Reason: Discomfort Ibuprofen (Ibuprofen 600 Mg Tablet) 600 mg PO Q6H [facility] Last Admin: 09/25/20 00:02 Dose: 600 mg Documented by: Methylergonovine Maleate (Methylergonovine 0.2 Mg/Ml Ampul) 0.2 mg IM X1 PRN PRN Reason: Uterine Atony Last Admin: 09/23/20 04:31 Dose: 0.2 mg Documented by: Ondansetron HCl (Ondansetron 4 Mg/2 Ml Vial) 4 mg IV Q4H PRN PRN PRN Reason: Nausea Last Admin: 09/23/20 06:41 Dose: 4 mg Documented by: Oxycodone HCl (Oxycodone 5 Mg Tablet) 5 - 10 mg PO Q4H PRN PRN PRN Reason: Pain Score 4-10 Prochlorperazine Edisylate (Prochlorperazine 10 Mg/2 Ml Vial) 10 mg IV Q6H PRN PRN PRN Reason: NAUSEA Senna/Docusate Sodium (Senna/Docusate Sodium 1 Tablet) 1 - 2 tablet PO DAILY [facility] Last Admin: 09/24/20 10:42 Dose: 1 tablet Documented by: Simethicone (Simethicone 80 Mg Tablet) 80 mg PO PCHS PRN PRN Reason: Indigestion/stomach pain Last Admin: 09/24/20 07:02 Dose: 80 mg Documented by: Sodium Chloride (0.9% Saline Lock 10 Ml Syringe) 5 - 15 ml IV UD PRN PRN Reason: SALINE FLUSH Last Admin: 09/24/20 06:55 Dose: 10 ml Documented by: Medical Necessity - Tobacco Use Smoking Status: Former smoker Assessment/Plan All Active Problems (Last Reviewed 09/10/20 @ 14:43 by Lisa Porter) COVID-19 affecting , antepartum (Acute) 36 weeks gestation of (Acute) GDM (gestational diabetes mellitus) (Acute) Rubella non-immune status, antepartum (Acute) Influenza vaccination declined (Acute) UTI (urinary tract infection), affecting care of mother, antepartum (Acute) (Acute) Supervision of normal (Acute) Pharyngitis, acute (Resolved) s/p LTCS PPD # 2 1. routine post care 2. breast feeding- support given 3. rh positive 4. rubella immune
[2020-09-25 08:45] VITALS: BP 125/84; PULSE 100; RESP 16; TEMP 36.8
[2020-09-25 08:53] VITALS: BP 125/84; PULSE 105; TEMP 36.8
[2020-09-27 15:10] LABS: Pathology Specimen OB SEE PATHOLOGY REPORT
--- NOTE | 2020-09-28 09:04 | PCM.DC.SUM ---
Discharge Date and Diagnosis - Problem List Patient Problems: Active and Suspected Problems (Last Reviewed 09/10/20 @ 14:43 by Lisa Porter) COVID-19 affecting , antepartum (Acute) baby ASA 36 weeks gestation of (Acute) electronic test ordered 08/24/20 (scheduled 09/10/20 @ 4:30) GDM (gestational diabetes mellitus) (Acute) Referred to endo. Declines weight inspector consult. Discussed growths q4 weeks. Discussed testing if requires medication. Timing of delivery dependent on diabetic control. Rubella non-immune status, antepartum (Acute) Needs vaccine PP. Influenza vaccination declined (Acute) UTI (urinary tract infection), affecting care of mother, antepartum (Acute) Repeat urine culture neg (Acute) genetic, carrier, and ntd screening declined. Supervision of normal (Acute) PRR Boy! Ewa JENNIFFER 09/18/20 Steve Date of Admission: 09/21/20 Date of Discharge: 09/25/20 - Primary Discharge Diagnosis Acute Problems: Active Problems (Last Reviewed 09/10/20 @ 14:43 by Lisa Porter) COVID-19 affecting , antepartum (Acute) baby ASA 36 weeks gestation of (Acute) electronic test ordered 08/24/20 (scheduled 09/10/20 @ 4:30) GDM (gestational diabetes mellitus) (Acute) Referred to endo. Declines weight inspector consult. Discussed growths q4 weeks. Discussed testing if requires medication. Timing of delivery dependent on diabetic control. Rubella non-immune status, antepartum (Acute) Needs vaccine PP. Influenza vaccination declined (Acute) UTI (urinary tract infection), affecting care of mother, antepartum (Acute) Repeat urine culture neg (Acute) genetic, carrier, and ntd screening declined. Supervision of normal (Acute) PRR Boy! Ewa JENNIFFER 09/18/20 Steve Hospital Course and Treatment Operations: - - LTCS Summary of Care Provided: The patient is a 25 year old F presented for IOL GDMA1. she underwent induction, proceeded to complete dilation and developed tachycardia and chorioamnionitis. She was started on antibiotics and began pushing and attempted forceps delivery was made with no descent and therefore the diagnosis of CPD was made and the decision for primary low transverse was made. Patient proceeded with and postoperatively had a routine recovery with return of bowel and bladder function was ambulating well tolerating p.o. and had adequate pain control with oral medications was stable for discharge to home on postop day #3 Patient Problems: Active and Suspected Problems (Last Reviewed 09/10/20 @ 14:43 by Lisa Porter) COVID-19 affecting , antepartum (Acute) baby ASA 36 weeks gestation of (Acute) electronic test ordered 08/24/20 (scheduled 09/10/20 @ 4:30) GDM (gestational diabetes mellitus) (Acute) Referred to endo. Declines weight inspector consult. Discussed growths q4 weeks. Discussed testing if requires medication. Timing of delivery dependent on diabetic control. Rubella non-immune status, antepartum (Acute) Needs vaccine PP. Influenza vaccination declined (Acute) UTI (urinary tract infection), affecting care of mother, antepartum (Acute) Repeat urine culture neg (Acute) genetic, carrier, and ntd screening declined. Supervision of normal (Acute) PRR Boy! Damienclaudio JENNIFFER 09/18/20 Steve - Physical Exam Vitals/I&O's: Vital Signs Temp Pulse Resp BP Pulse Ox 98.2 F 105 H 16 125/84 H 98 09/25/20 08:53 09/25/20 08:53 09/25/20 08:45 09/25/20 08:53 09/24/20 20:10 Oxygen Flow Rate (L/min) 2 Oxygen Delivery Method Room Air Weight: 185 lb Body Mass Index (BMI) 34.9 Discharge Diet: No Restrictions Discharge Activity: May Not Drive - for 2 weeks or while taking narcotic pain meds., May Shower, May Take a Tub Bath - in 7 days. May resume sexual activity in: 4-6 weeks Additional Activity Instructions:: Nothing in the vagina for 4-6 weeks. You may return to work/school in 6 weeks. Call your doctor if your incision/area has: Continuous Slow Oozing, Sudden Increased Bleeding, Increased Pain/ Swelling, Increased Redness, Foul Smelling Discharge Call your doctor if you observe: Fever of 101 or Higher Suture Line Care: Avoid Pulling/Pushing, Avoid Pinching/Bending Home Medications: Medications to take at Discharge vitamin#30 30 mg iron-10 mg iron-folic acid 1 mg-omg3 capsule 1 cap PO DAILY 03/02/20 ondansetron HCl 4 mg tablet 4 mg PO Q8H PRN #60 tab 06/28/20 Famotidine 20 mg PO BID 09/21/20 Ibuprofen [Motrin] 600 mg PO Q6H PRN PRN #30 tab 09/23/20 Oxycodone [Oxyir] 5 mg PO Q6H PRN PRN 7 Days #15 tab 09/23/20 Ferrous Sulfate [Slow Fe] 142 mg PO BID #60 tablet.er 09/24/20 Following Prescriptions Were Given to Patient: Ibuprofen [Motrin] 600 mg PO Q6H PRN PRN #30 tab PRN Reason: Pain Transmission Status: Received by [facility] Oxycodone [Oxyir] 5 mg PO Q6H PRN PRN 7 Days #15 tab PRN Reason: Pain Score 6-10/10 Transmission Status: Received by [facility] Ferrous Sulfate [Slow Fe] 142 mg PO BID #60 tablet.er Transmission Status: Received by [facility] Primary Care Physician: Care Physician,No Primary [Primary Care Provider] - Medical Necessity - Tobacco Use Smoking Status: Former smoker Meaningful Use Info Meaningful Use Diagnoses (Choose all that apply): None applicable
== END 2020-09-25 11:00 | disposition home or self-care (01) | DRG 786 ==
PROVIDERS: Obstetrics & Gynecology; Admitting Provider Obstetrics & Gynecology; Visit Provider Obstetrics & Gynecology
DX: O33.9 Maternal care for disproportion, unspecified (principal); O41.1230 Chorioamnionitis, third trimester, not applicable or unspecified; D62 Acute posthemorrhagic anemia; O76 Abnormality in fetal heart rate and rhythm complicating labor and delivery; O62.2 Other uterine inertia; O99.02 Anemia complicating childbirth; O24.420 Gestational diabetes mellitus in childbirth, diet controlled; O99.891 Other specified diseases and conditions complicating pregnancy; Z86.16 Personal history of COVID-19; Z28.3 Underimmunization status; Z28.21 Immunization not carried out because of patient refusal; Z37.0 Single live birth; Z87.891 Personal history of nicotine dependence; Z3A.40 40 weeks gestation of pregnancy; O66.5 Attempted application of vacuum extractor and forceps; Z98.891 History of uterine scar from previous surgery
CPT/HCPCS: 59025; 59050; 82962; 84112; 85025; 85027; 86850; 86900; 86901; 88307; 99218; 99251; J7120; A4216; G0378; G0463; J2405

== ENCOUNTER → 2022-09-26 | Outpatient (CLI) | payer OTHER, SELFPAY ==
[2022-10-03 18:19] LABS: HPV Reflexed? NOT INDICATED
== END | disposition home or self-care (01) ==
PROVIDERS: Visit Provider Nurse Practitioner Women's Health
DX: N39.0 Urinary tract infection, site not specified (principal); Z12.4 Encounter for screening for malignant neoplasm of cervix
CPT/HCPCS: 87086; 87088; 88175; G0145

== ENCOUNTER → 2022-12-12 | Outpatient (CLI) | payer OTHER, SELFPAY ==
[2022-12-12 14:19] LABS: hCG Titer Quant., Serum 13531 mIU/mL (1-3)
== END | disposition home or self-care (01) ==
LOC: LAB 12:19
PROVIDERS: Referring Provider Obstetrics & Gynecology; Visit Provider Obstetrics & Gynecology
DX: N92.0 Excessive and frequent menstruation with regular cycle (principal)
CPT/HCPCS: 36415; 84702

== ENCOUNTER → 2022-12-14 | Outpatient (CLI) | payer OTHER, SELFPAY ==
--- NOTE | 2022-12-14 11:20 | US_ITS ---
INDICATION: spotting EXAMINATION: Ultrasound US OB Transvaginal TECHNIQUE: Transabdominal pelvic ultrasound was performed. Grayscale, spectral waveform, and color flow Doppler evaluation of the adnexa. COMPARISON: None. LMP: [Unknown Beta-hCG: Unknown FINDINGS: Uterus 9.5 x 5.8 x 4.3 cm. Cervix closed. Right ovary 3.0 x 2.3 x 2.4 cm and left ovary 2.6 x 1.9 x 1.9 cm. Right ovary demonstrates corpus luteum cyst 1.7 x 1.8 x 1.7 cm. INTRAUTERINE GESTATIONAL SAC(s) (size/shape): Gestational sac is visualized. YOLK SAC: Identified measuring 0.29 cm. POLE: Identified CRL 0.4 cm corresponding to a mean gestational age of 6 weeks 2 days.. ESTIMATED GESTATION AGE: . HEART MOTION: 120 bpm. PLACENTA: Not visualized due to age. SUBCHORIONIC HEMORRHAGE: Subchorionic hemorrhage 1.2 x 1.3 x 0.5 cm. AMNIOTIC FLUID: Qualitatively normal. The gestational sac relative to the pole and yolk sac appears to be disproportionately large. US/Transvaginal w/Preg US IMPRESSION: Single live intrauterine . Estimated gestational age is 6 weeks 2 days based upon crown-rump length.. Mildly prominent gestational sac. This could represent normal variant. However recommend the follow-up ultrasound to confirm maintenance of viability if clinically warranted. Electronically Signed: Rony Saravia MD, BACILIO at 21:46 EDT ,
== END | disposition home or self-care (01) ==
LOC: US 11:19
PROVIDERS: Referring Provider Nurse Practitioner Women's Health; Visit Provider Nurse Practitioner Women's Health
DX: N92.0 Excessive and frequent menstruation with regular cycle (principal)
CPT/HCPCS: 76817

== ENCOUNTER → 2022-12-26 | Outpatient (CLI) | payer OTHER, SELFPAY ==
--- NOTE | 2022-12-26 14:28 | US_ITS ---
EXAM: US , TRANSVAGINAL CLINICAL INDICATION: None provided. viability/ spotting x 2 weeks TECHNIQUE: Real-time transvaginal obstetrical ultrasound of the maternal pelvis and a first trimester with image documentation. Transvaginal imaging was used for better evaluation of the fetus and adnexa. COMPARISON: December 14, 2022. Small hemorrhage noted at that time. FINDINGS: GESTATION: Intrauterine gestation with pole and yolk sac. Mean sac diameter 2.8 cm corresponds to 7 weeks 6 days gestation. 2.5 mm yolk sac. 1.5 cm pole consistent with 7 weeks 6 days gestation. Sonographic JENNIFFER August 08, 2023. Normal heart rate of 161 bpm. UTERUS/CERVIX: Uterus is 10.5 cm x 4.8 cm x 7.1 cm. No myometrial mass. OVARIES: Right ovary 2.6 cm x 2 cm x 2.1 cm with documented blood flow and small thick-walled corpus luteum of 1.8 cm maximum diameter. Left ovary 1.7 cm x 2 cm x 2.7 cm with documented blood flow. FREE FLUID: No free fluid. US/Transvaginal w/Preg US IMPRESSION: Single live early intrauterine . Sonographic age of 7 weeks 6 days. Right ovarian corpus luteum. No evidence of residual or recurrent hemorrhage. Electronically Signed: Magaly Stallings MD at 9:15 EDT ,
== END | disposition home or self-care (01) ==
PROVIDERS: Referring Provider Obstetrics & Gynecology; Visit Provider Obstetrics & Gynecology
DX: N92.0 Excessive and frequent menstruation with regular cycle (principal)
CPT/HCPCS: 76817

== ENCOUNTER → 2023-01-01 | Outpatient (CLI) | payer OTHER, SELFPAY ==
[2023-01-01 11:19] LABS: Amphetamine Urine VISTA NEGATIVE (<1000 ng/mL); Barbiturate Urine VISTA NEGATIVE (< 200 ng/mL); Benzodiazepine Urine VISTA NEGATIVE (< 200 ng/mL); Cocaine Urine VISTA NEGATIVE (< 300 ng/mL); Ecstacy Urine VISTA NEGATIVE (< 500 ng/mL); Methadone Urine VISTA NEGATIVE (< 300 ng/mL); PCP Urine VISTA NEGATIVE (< 25 ng/mL); THC Urine VISTA NEGATIVE (< 50 ng/mL); Vista UDS pH Range 5
[2023-01-03 09:09] LABS: Chlamydia By Nucleic Acid AMP Negative (Negative); Gonococcus By Nucleic Acid AMP Negative (Negative)
== END | disposition home or self-care (01) ==
LOC: LABSPEC 10:35
PROVIDERS: Referring Provider Obstetrics & Gynecology; Visit Provider Obstetrics & Gynecology
DX: Z34.90 Encounter for supervision of normal pregnancy, unspecified, unspecified trimester (principal); F12.91 Cannabis use, unspecified, in remission
CPT/HCPCS: 80307; 87086; 87088; 87491; 87591

== ENCOUNTER → 2023-02-02 | Outpatient (CLI) | payer OTHER, SELFPAY ==
[2023-02-02 13:29] LABS: Basophil# 0.04 X10^3/uL; Basophil% 0.4 % (0-1); Eosinophil# 0.06 X10^3/uL; Eosinophils% 0.6 % (0-5); Hematocrit 39.2 % (37-47); Hemoglobin 13.5 g/dL (12.0-15.0); Lymphocyte % 17.5 % (19-41); Mean Corp Hgb Conc 34.4 g/dL (32-36); Mean Corpuscular Hgb 31.2 pg (27.0-32.0); Mean Corpuscular Volume 90.5 fL (81-99); Mean Platelet Vol. 8.4 fl (6.2-12.0); Monocyte# 0.79 X10^3/uL; Monocyte% 7.3 % (0-10); NRBC Flagged by Analyzer 0 % (0-5); Neutrophil % 73.8 % (47-70); Platelet Count 256 K/mm3 (150-450); RBC Distribution Width CV 12.1 % (11.6-14.6); RBC Distribution Width SD 39.9 fl (35.1-43.9); Red Blood Count 4.33 M/mm3 (4.2-5.4); White Blood Count 10.8 K/mm3 (4.4-11.0)
[2023-02-02 14:08] LABS: Glucose Challenge Gest 1H 50g 96 mg/dL (70-140)
[2023-02-02 15:03] LABS: HIV - WCH Non-Reactive (Nonreactive); Hepatitis B Surface Antigen Non-Reactive (Nonreactive); Hepatitis C Antibody Non-Reactive (Nonreactive); Rubella IgG Non-Reactive (Nonreactive); Syphilis Antibodies Non-reactive
== END | disposition home or self-care (01) ==
LOC: LAB 12:22
PROVIDERS: Referring Provider Obstetrics & Gynecology; Visit Provider Obstetrics & Gynecology
DX: Z34.92 Encounter for supervision of normal pregnancy, unspecified, second trimester (principal); Z3A.14 14 weeks gestation of pregnancy
CPT/HCPCS: 36415; 82950; 85025; 86703; 86762; 86780; 86803; 86850; 86900; 86901; 87340

== ENCOUNTER → 2023-05-02 | Outpatient (CLI) | payer OTHER, SELFPAY ==
[2023-05-02 16:43] LABS: Absolute Lymphocyte Count 1.25 X10^3/uL (0.83-4.51); Absolute Neutrophil Count 6.1 X10^3/uL (2.0-7.7); Basophil# 0.03 X10^3/uL; Basophil% 0.4 % (0-1); Eosinophil# 0.03 X10^3/uL; Eosinophils% 0.4 % (0-5); Hematocrit 38.2 % (37-47); Hemoglobin 12.8 g/dL (12.0-15.0); Lymphocyte # 1.25 X10^3/ul (0.83-4.51); Lymphocyte % 15.4 % (19-41); Mean Corp Hgb Conc 33.5 g/dL (32-36); Mean Corpuscular Hgb 31.1 pg (27.0-32.0); Mean Corpuscular Volume 92.7 fL (81-99); Monocyte# 0.66 X10^3/uL; Monocyte% 8.1 % (0-10); NRBC Flagged by Analyzer 0 % (0-5); Neutrophil % 75.2 % (47-70); Platelet Count 227 K/mm3 (150-450); RBC Distribution Width CV 12.6 % (11.6-14.6); RBC Distribution Width SD 42.5 fl (35.1-43.9); Red Blood Count 4.12 M/mm3 (4.2-5.4); White Blood Count 8.1 K/mm3 (4.4-11.0)
[2023-05-02 16:53] LABS: Glucose Challenge Gest 1H 50g 152 mg/dL (70-140)
[2023-05-02 17:44] LABS: HIV - WCH Non-Reactive (Nonreactive); Syphilis Antibodies Non-reactive
== END | disposition home or self-care (01) ==
LOC: LAB 16:15
PROVIDERS: Referring Provider Obstetrics & Gynecology; Visit Provider Obstetrics & Gynecology
DX: O09.90 Supervision of high risk pregnancy, unspecified, unspecified trimester (principal); Z13.1 Encounter for screening for diabetes mellitus; Z3A.00 Weeks of gestation of pregnancy not specified
CPT/HCPCS: 82950; 85025; 86703; 86780

== ENCOUNTER → 2023-07-11 | Outpatient (CLI) | payer OTHER, SELFPAY ==
--- NOTE | 2023-07-11 13:41 | US_ITS ---
STUDY: SECOND AND THIRD TRIMESTER OBSTETRICAL ULTRASOUND - LIMITED REASON FOR EXAM: Female, 27 years old Gestational diabetes LMP: Unknown. PRIOR ULTRASOUND: None. TECHNIQUE: Transabdominal TECHNICAL QUALITY: Adequate. FINDINGS: There is a single intrauterine fetus. The fetus is in a cephalic presentation. There is demonstrated cardiac activity with a heart rate of 140 bpm. There is a normal amniotic fluid volume. The largest amniotic fluid pocket measures 4.8 cm. The amniotic fluid index (PAULETTE) is 11.5 cm. The placenta is anterior in location and is not low lying. There are Grade 2 placental changes. The cervix is not visualized. BIOMETRY: BPD: 8.6 cm: 34 weeks, 5 days HC: 31.7 cm: 35 weeks, 5 days AC: 33.1 cm: 37 weeks, 0 days FL: 6.8 cm: 35 weeks, 0 days age by current US: 35 weeks, 3 days. JENNIFFER by current US: August 03, 2023. Estimated weight: 2374 grams, +/- 431 grams, 41 percentile. The nuchal cord is wrapped around the neck. US/OB Limited With Biometrics IMPRESSION: 1. Estimated weight: 2374 grams, +/- 431 grams, 41 percentile. 2. The nuchal cord is wrapped around the neck. Electronically Signed: Ramos Ma MD at 16:07 EST ,
[2023-07-11 18:50] LABS: Group B Strep DNA By PCR Negative (Negative); Internal Control PASS; Probe Check PASS; Specimen Processing Control PASS
== END | disposition home or self-care (01) ==
PROVIDERS: Registered Nurse; Referring Provider Obstetrics & Gynecology; Visit Provider Obstetrics & Gynecology
DX: O24.419 Gestational diabetes mellitus in pregnancy, unspecified control (principal); Z3A.00 Weeks of gestation of pregnancy not specified
CPT/HCPCS: 76816; 87081; 87653

== ENCOUNTER 2023-07-19 16:21 | Inpatient (IN) | payer OTHER, SELFPAY ==
[2023-07-19] VITALS (51 sets, daily range): BP systolic 114–167; BP diastolic 75–123; PULSE 84–122; RESP 14–25; TEMP 36.5–37.7; O2SAT 92–100; BMI 34.5
[2023-07-19 15:30] LABS: Hemoglobin 12.9 g/dL (12.0-15.0); Mean Corp Hgb Conc 34.9 g/dL (32-36); Mean Corpuscular Hgb 30.3 pg (27.0-32.0); Mean Corpuscular Volume 86.9 fL (81-99); Mean Platelet Vol. 10.3 fl (6.2-12.0); Platelet Count 204 K/mm3 (150-450); RBC Distribution Width CV 12.7 % (11.6-14.6); RBC Distribution Width SD 39.4 fl (35.1-43.9); Red Blood Count 4.26 M/mm3 (4.2-5.4); White Blood Count 7.7 K/mm3 (4.4-11.0)
[2023-07-19 15:51] LABS: AST(SGOT) 18 U/L (15-37); Alanine Aminotransfer ALT/SGPT 16 U/L (13-56); Creatinine, Serum 0.76 mg/dL (0.55-1.02); EST Glomerular Filtration Rate 97 mL/min (>60); Est Glom Filt Rate - Afr Amer 117 mL/min (>60); Uric Acid 7.7 mg/dL (2.6-6.0)
[2023-07-19] MEDS: Lactated Ringers 1,000 ML 999 ML IV (16:00)
[2023-07-19 16:12] LABS: Protein, Urine (Random) 1048.8 mg/dL (<11.9); Protein:Creat Ratio 3580 mg/g CRE (0-200)
[2023-07-19] MEDS: Magnesium Sulfate 4gm/100mL 4 GM/100 ML IV.SOLN. IV (16:25)
[2023-07-19] MEDS: Sodium Citrate/Citric Acid 30 ML UDC PO (16:37)
[2023-07-19] MEDS: Lactated Ringers 1,000 ML 125 ML IV (16:37)
[2023-07-19] MEDS: Acetaminophen 500 MG Tablet 1000 MG PO ×2 (16:38→23:24)
[2023-07-19] MEDS: Magnesium Sulfate 4gm/100mL 2 GM/50 ML IV.SOLN. IV (16:45)
[2023-07-19] MEDS: Cefazolin 2 GM in 0.9% Normal Saline (100mL Bag) 100 ML IV (16:53)
[2023-07-19] MEDS: Magnesium Sulfate 20 GM/500 ML BAG IV (16:56)
[2023-07-19 17:37] LABS: Bedside Glucose 92 mg/dL (74-106)
[2023-07-19 17:38] LABS: Syphilis Antibodies Non-reactive
[2023-07-19] MEDS: Oxytocin 15 Units/NS 250ml 15 UNITS/250 ML IV.SOLN 83 UNITS IV (17:40)
--- NOTE | 2023-07-19 17:41 | OP.PCM_ITS ---
Assessment & Plan (1) Elevated blood pressure affecting in third trimester, antepartum: (2) GDM (gestational diabetes mellitus): COMMENT: diet controlled referral to Dr Ramos and dietitian. Will check glucose QID and bring reading to appt. Growth US at 36 wk (3) Rubella non-immune status, antepartum: COMMENT: MMR pp (4) : QUALIFIERS: Weeks of gestation: 37 weeks Qualified Code(s): Z3A.37 - 37 weeks gestation of COMMENT: gbs negative. anatomy nl, genetic and carrier screening afp declined. (5) History of marijuana use: COMMENT: tox screen prn; neg at NOB (6) Hx of section: COMMENT: failed forceps attempt plan RLTCS- scheduled for 07/27 @ 7:30 with (7) Supervision of high risk , antepartum: COMMENT: PRR , JENNIFFER 08/03/23 girl Jose Mcneil, Steve (8) delivery delivered: COMMENT: RLTCS 37 preeclampsia severe features girl [place] Maternal Data Information JENNIFFER Calculator Estimated Delivery Date Method Current WG Current Estimate 08/03/23 LMP (Certain) 37w 6d Other Estimates 08/07/23 Ultrasound #1 37w 2d Final JENNIFFER Source: LMP Details Operative Information Date of Procedure: 07/19/23 Pre-Operative Diagnosis: Previous Post-Operative Diagnosis: same Indications for : Repeat Elective (and severe preeclampsia) Indications Narrative: Surgeon: Luisa Boykin MD Classification: GABRIELA Procedure Type: low transverse explosives worker #1: Myriam Flanagan Type of Anesthesia: Spinal Special Medications: magnesium sulfate hemabate for mild atony Antibiotic Given: Ancef 2 grams IV x1 Drain: Appiah to straight drain Estimated Blood Loss: 600 Fluids Replaced: crystalloid Procedure Start Time: 16:58 Procedure Stop Time: 17:23 Findings Description of Procedure: Spinal anesthesia was placed without difficulty. Appiah catheter was placed. The patient was placed in the dorsal supine position with leftward tilt. Patient was prepped and draped in the normal sterile fashion. Pfannenstiel skin incision was made with the scalpel and carried through to the underlying layer of fascia with the scalpel. Fascia was nicked in the midline and the incision extended laterally. The rectus bellies were dissected off superiorly and inferiorly with out complication both sharply and bluntly. The peritoneum was entered digitally. The incision was stretched and a low transverse uterine incision was made with the scalpel. The 's head was delivered atraumatically, noted to have a funic presentation, followed by the anterior and posterior shoulders without complication the rest of the delivered. The cord was clamped and cut and the was handed off to awaiting nurse. The placenta was delivered spontaneously immediately following and was noted to be intact and have a three-vessel cord. The uterus was exteriorized cleared of all clots and debris, and the incision was closed in a single layer closure using #1 Monocryl. The ovaries and fallopian tubes were noted to be within normal limits. The uterus was returned to the maternal abdomen and gutters were cleared of all clots and debris. The peritoneum was closed with 3-0 Monocryl in a running fashion. Fascia was closed with 0 PDS in a running fashion. Subcutaneous tissue was copiously irrigated and the skin was closed with 3-0 Monocryl in a subcuticular fashion. Mepilex dressing was applied without comp lication. Patient was taken to recovery in stable condition. It was discussed with the patient that based on the clinical information obtained during this encounter, combined with her history, at this time I would recommend cesareans for future deliveries if further pregnancies are desired. Amniotic Membrane Rupture Type: Artificial Amniotic Fluid Description: Clear Placenta Disposition: [facility] Cord Vessel Description: 3 Vessels Cord Entanglement: Around neck x 1, loose and - (funic presentation) Delayed Cord Clamping: Yes Complications Risks of Surgery Discussed w/Patient: Bleeding, Infection, Need for Future C- Sections and Injury to surrounding structure(s) including bowel and bladder Vaginal Delivery Complication Complications: None Admit VTE Documentation VTE Present on Admission: No VTE Mechan Device Prophylaxis: SCD's Procedures Urinary/Genital [id number]: [id number] Delivery [facility]
--- NOTE | 2023-07-19 17:41 | HP.PCM.OB_ITS ---
HPI - General General Date of Admission: 07/19/23 HPI Narrative KONSTANTIN MCLEAN, is a 28 F who presents with elevated bps, one severe ranged and new onset 3500mg protein in her urine. she also has DIAZ and change in vision today, decreased movement. she denies any vb lof no regular ctx. Maternal Data Information JENNIFFER Calculator Estimated Delivery Date Method Current WG Current Estimate 08/03/23 LMP (Certain) 38w 0d Other Estimates 08/07/23 Ultrasound #1 37w 3d PFSH PFSH Medical History (Updated 07/19/23 @ 20:07 by Carolina Chandler) GDM (gestational diabetes mellitus) Gestational diabetes History of abnormal cervical Pap smear HPV test positive Hx of gestational diabetes in prior , currently Pre-eclampsia Home Medications prenat.vits,jag,fls-vuik-kpyhx 1 tab PO DAILY 09/26/22 [History Last Taken Unknown] promethazine 25 mg tablet 12.5 mg (1/2 x 25 mg) PO TID PRN nausea and vomiting #30 tabs 12/21/22 [Rx Last Taken Unknown] ondansetron 4 mg disintegrating tablet 4 mg PO Q4H PRN nausea and vomiting #60 tabs 01/03/23 [Rx Last Taken Unknown] Allergy/AdvReac Type Severity Reaction Status Date / Time No Known Allergies Allergy Verified 07/19/23 15:16 Family History Father No problems noted. Unknown Diabetes Surgical History (Updated 07/19/23 @ 17:[address] Luisa Boykin MD) Status post Social History adopted: No household members: spouse and children number of children: 1 current occupational status: employed current occupation: Teacher current occupational exposures/hazards: No pets and animals: Yes pets and animals: dog(s) history of recent travel: No sexually active: Yes Smoking Status: Former smoker alcohol intake: never substance use type: former substance user Date of last use: marijuana well-balanced diet: daily or most days caffeine: Yes Type: coffee Number of servings: 1 eating out: 1-3 times/week during the past year weight has: remained stable what type of physical activity do you participate in: other details: spinning frequency: 1-2 times per week duration: 45-60 minutes/day manohar/sikhism: Catholic seatbelt use: always do you feel safe at home: Yes additional social history: Steve- Works for [employer] Patient is a grade teacher History 3 Elective abortions Hx Para 1 Spontaneous abortions 1 Hx # Term Pregnancies Ectopic pregnancies Hx # Pregnancies Multiple births # of living children 1 Past Pregnancies Del. Date Name GA/Weeks Outcome Route Bth Weight [facility] Jul [facility] SAB 09/23/20 Ewa 40 live - full term 7lbs 12oz Male epidural [facility] GP Delivery Date: 09/23/20 Last Updated by: Angela Douglas induction of labor for diet-controlled gestational diabetes, suspected intrapartum intraamniotic infection, failed forceps delivery- c/s; Category 2 FHT Visit Details Expected Delivery Route/Plan RLTCS Plans Covid status: unvax Flu vaccine: declines Tdap vaccine: declines Rhogam: NA LARC form signed: yes Problem list reviewed and updated with the most current plan of care details and appropriate orders placed. Relevant counseling for the gestational age provided. Continue routine care and follow up unless otherwise noted in visit notes/problem list details OB Flowsheet Initial Weight: Not Recorded Date -?-?-?-?-?-?-?-?-?-?-?-?- EGA Weight BP Urine Prot -?-?-?-?-?-?-?-?-?-?-?-?- Glucose FHR FuHt Pres Dilation -?-?-?-?-?-?-?-?-?-?-?-?- Effaced St Visit Note 01/01/23 -?-?-?-?-?-?-?-?-?-?-?-?- 9w 3d 144 lb 109/76 -?-?-?-?-?-?-?-?-?-?-?-?- 160 -?-?-?-?-?-?-?-?-?-?-?-?- SM- CRL cons wit h LMP SM- CRL 1.95cm cons with LMP 02/02/23 -?-?-?-?-?-?-?-?-?-?-?-?- 14w 0d 150 lb 4 oz 129/81 Nega tive -?-?-?-?-?-?-?-?-?-?-?-?- Negative 155 -?-?-?-?-?-?-?-?-?-?-?-?- JV- having a lot of nausea and vomiting but declines a second agent or zofran pump at this time. anatomy ultrasound ordered. 02/28/23 -?-?-?-?-?-?-?-?-?-?-?-?- 17w 5d 156 lb 6 oz 108/72 Nega tive -?-?-?-?-?-?-?-?-?-?-?-?- Negative 164 -?-?-?-?-?-?-?-?-?-?-?-?- MH-No VB or cram ping. Feels well. Nausea resolved. Reviewed PN labs and rubella nonimmune 03/27/23 -?-?-?-?-?-?-?-?-?-?-?-?- 21w 4d 164 lb 6 oz 123/84 Nega tive -?-?-?-?-?-?-?-?-?-?-?-?- Negative 150 -?-?-?-?-?-?-?-?-?-?-?-?- SM- no vb lof go od fm 05/02/23 -?-?-?-?-?-?-?-?-?-?-?-?- 26w 5d 170 lb 8 oz 123/79 Nega tive -?-?-?-?-?-?-?-?-?-?-?-?- Negative 137 26 -?-?-?-?-?-?-?-?-?-?-?-?- JV- no lof, vagi nal bleeding, or dec fm. wants rpt section with SM on 07/27/23 if possible 05/14/23 -?-?-?-?-?-?-?-?-?-?-?-?- 28w 3d 171 lb 8 oz 115/76 Nega tive -?-?-?-?-?-?-?-?-?-?-?-?- Negative 156 28 -?-?-?-?-?-?-?-?-?-?-?-?- JV- working on s cheduling section with SM on 07/27. pt declined 3 hr and will be checking glucose levels fasting and 2 hr pp. declines tdap and flu vaccine. 05/28/23 -?-?-?-?-?-?-?-?-?-?-?-?- 30w 3d 173 lb 8 oz 122/76 Nega tive -?-?-?-?-?-?-?-?-?-?-?-?- Negative 151 30 -?-?-?-?-?-?-?-?-?-?-?-?- MH-No VB, lof. G ood FM. More uncomfortable overall but no definitive concerns 06/13/23 -?-?-?-?-?-?-?-?-?-?-?-?- 32w 5d 174 lb 130/78 Negative -?-?-?-?-?-?-?-?-?-?-?-?- Negative 153 32 -?-?-?-?-?-?-?-?-?-?-?-?- JV- no lof, vagi nal bleeding, or dec fm. glucose levels all within range. has c/s scheduled 06/25/23 -?-?-?-?-?-?-?-?-?-?-?-?- 34w 3d 178 lb 8 oz 130/87 Nega tive -?-?-?-?-?-?-?-?-?-?-?-?- Negative 150 34 -?-?-?-?-?-?-?-?-?-?-?-?- SM- no vb lof go od fm no regular ctx BS reviewed 07/11/23 -?-?-?-?-?-?-?-?-?-?-?-?- 36w 5d 183 lb 8 oz 133/91 Nega tive -?-?-?-?-?-?-?-?-?-?-?-?- Negative 150 36 1 -?-?-?-?-?-?-?-?-?-?-?-?- 20 -3 LC- no vb/ ctx/lof. good fm. bs reviewed. gbs collected. 07/19/23 -?-?-?-?-?-?-?-?-?-?-?-?- 37w 6d 184 lb 148/98 3+ -?-?-?-?-?-?-?-?-?-?-?-?- Negative -?-?-?-?-?-?-?-?-?-?-?-?- elevated bp elevated bp- to l and d for evaluation now and possible delivery NST FHR Rate Baby A Baseline: 170 Variability:: Moderate Accelerations:: 15 x 15 Decelerations:: None NST Reactive:: Yes FHR Category:: Category I Uterine Activity:: irregular ROS Constitutional Constitutional: Reports systems reviewed and no addt'l complaints, except as documented Eyes Eyes: Denies change in vision ENT HEENT: Reports systems reviewed and no addt'l complaints, except as documented; Denies headache(s) Cardiovascular Cardiovascular: Reports systems reviewed and no addt'l complaints, except as documented; Denies chest pain or dyspnea Respiratory/Chest Respiratory/Chest: Reports systems reviewed and no addt'l complaints, except as documented Gastrointestinal Gastrointestinal: Reports systems reviewed and no addt'l complaints, except as documented; Denies abdominal pain Genitourinary Genitourinary: Reports systems reviewed and no addt'l complaints, except as documented, contractions Details: present (irregular) and movement Details: present; Denies dysuria or genital lesions Musculoskeletal Musculoskeletal: Reports systems reviewed and no addt'l complaints, except as documented Neurologic Neurologic: Reports systems reviewed and no addt'l complaints, except as documented Endocrine Endocrinology: Reports systems reviewed and no addt'l complaints, except as documented Vital Signs Vital Signs Vital Signs: 07/19/23 15:15 07/19/23 15:15 07/19/23 15:30 Temperature Temperature Source Pulse Rate 94 Blood Pressure 157/105 H 162/108 H BP Systolic 157 162 BP Diastolic 105 108 Pulse Ox 07/19/23 15:30 07/19/23 15:30 07/19/23 15:30 Temperature Temperature Source Pulse Rate 106 H 100 Blood Pressure BP Systolic BP Diastolic Pulse Ox 100 07/19/23 15:31 07/19/23 15:31 07/19/23 15:31 Temperature 99.8 F H Temperature Source Tympanic Pulse Rate Blood Pressure BP Systolic BP Diastolic Pulse Ox 100 07/19/23 15:44 07/19/23 15:44 07/19/23 15:59 Temperature Temperature Source Pulse Rate 96 Blood Pressure 154/104 H 148/102 H BP Systolic 154 148 BP Diastolic 104 102 Pulse Ox 07/19/23 15:59 07/19/23 16:14 07/19/23 16:14 Temperature Temperature Source Pulse Rate 100 106 H Blood Pressure 144/106 H BP Systolic 144 BP Diastolic 106 Pulse Ox 07/19/23 16:30 07/19/23 16:30 Temperature Temperature Source Pulse Rate 122 H Blood Pressure 153/82 H BP Systolic 153 BP Diastolic 82 Pulse Ox Weight Weight: 183 lb Body Mass Index (BMI) 34.5 Physical Exam Const alert, oriented x3, no apparent distress and healthy appearing HEENT normocephalic and moist oral mucous membranes Head and Scalp: atraumatic Neck full ROM, no lymphadenopathy, supple and thyroid normal General: trachea midline Lymph Lymphatic: no lymphadenopathy noted Chest inspection of chest normal Resp normal respiratory effort Cardio regular rate GI normal to inspection, nondistended, normoactive bowel sounds, soft to palpation and non-tender Inspection: gravid external exam normal Manual OB Exam: estimated gestational size appropriate, presentation cephalic, dilated, effaced and station Extremity normal to inspection General Extremity: Negative for edema Skin no rashes or lesions noted Neuro no focal motor deficits and deep tendon reflexes 2+ bilaterally Motor Exam: strength 5/5 throughout and clonus absent Psych mental status grossly normal Labs Labs Labs: Blood Type O POSITIVE Antibody Screen NEGATIVE Hct 37.0 % (37-47) Hgb 12.9 g/dL (12.0-15.0) Obstetrics Ultrasound Syphilis Total Ab Non-reactive Rubella IgG Antibody Non-Reactive (Nonreactive) Hep Bs Antigen Non-Reactive (Nonreactive) Hepatitis C Antibody Non-Reactive (Nonreactive) Chlamydia DNA (MAUREEN) Negative (Negative) N.gonorrhoeae DNA (MAUREEN) Negative (Negative) HIV 1&2 Antibody Non-Reactive (Nonreactive) Glucose 1 Hr 50 gm 152 mg/dL (70-140) H Gest Glucose Tolerance MG/DL Group B Strep DNA Negative (Negative) Rhogam given: No Assessment & Plan (1) Preeclampsia, severe: COMMENT: magnesium sulfate x 24 hours (2) Rubella non-immune status, antepartum: COMMENT: MMR pp (3) GDM (gestational diabetes mellitus): COMMENT: diet controlled referral to Dr Rmaos and dietitian. Will check glucose QID and bring reading to appt. Growth US at 36 wk (4) History of marijuana use: COMMENT: tox screen prn; neg at NOB (5) Hx of section: COMMENT: failed forceps attempt plan RLTCS- scheduled for 07/27 @ 7:30 with SM (6) Supervision of high risk , antepartum: COMMENT: PRR , JENNIFFER 08/03/23 girl Jose Mcneil, Steve (7) : QUALIFIERS: Weeks of gestation: 37 weeks Qualified Code(s): Z3A.37 - 37 weeks gestation of COMMENT: gbs negative. anatomy nl, genetic and carrier screening afp declined. PLAN: Plan proceed with magnesium sulfate, immediate delivery and labetalol HTN protocol if needed
[2023-07-19] MEDS: Lactated Ringers 1,000 ML 100 ML IV (18:20)
[2023-07-19] MEDS: Labetalol (Prefilled) 20 MG/4 ML IV (18:30)
[2023-07-19] MEDS: 0.9% Saline Lock 10 ML Syringe IV ×2 (18:45→19:40)
[2023-07-19] MEDS: Labetalol 100 MG Tablet PO ×2 (19:23→20:38)
[2023-07-19] MEDS: Ketorolac 30 MG/ML Syringe IV (19:24)
[2023-07-19] MEDS: Labetalol (Prefilled) 20 MG/4 ML 40 MG IV (19:40)
[2023-07-19 21:11] LABS: Bedside Glucose 116 mg/dL (74-106)
[2023-07-19 21:36] LABS: Absolute Lymphocyte Count 1.58 X10^3/uL (0.83-4.51); Absolute Neutrophil Count 5.5 X10^3/uL (2.0-7.7); Basophil# 0.03 X10^3/uL; Basophil% 0.4 % (0-1); Eosinophil# 0.02 X10^3/uL; Eosinophils% 0.3 % (0-5); Lymphocyte # 1.58 X10^3/ul (0.83-4.51); Lymphocyte % 20.3 % (19-41); Monocyte# 0.61 X10^3/uL; Monocyte% 7.9 % (0-10); NRBC Flagged by Analyzer 0 % (0-5); Neutrophil # 5.51 X10^3/uL (2.7-7.7); Neutrophil % 70.8 % (47-70)
[2023-07-20] VITALS (21 sets, daily range): BP systolic 107–138; BP diastolic 66–94; PULSE 73–99; RESP 16–18; TEMP 36.3–37; O2SAT 95–100
--- NOTE | 2023-07-20 00:55 | NURSING ---
Pt refusing to get out of bed or sit on side of bed at this time due to not feeling well. Education provided on importance of getting out of bed after surgery. Pt would like to get out of bed later.
--- NOTE | 2023-07-20 02:29 | DCINST_ITS ---
Discharge Instructions Diet Discharge Diet: No restrictions Activity Discharge Activity: May Not Drive (for 2 weeks or while taking narcotic pain medications.), May Shower and May Take a Tub Bath (in 7 days) May shower in (days): 0 May resume sexual activity in: 4-6 weeks Weight Bearing Status: Full weight bearing Lifting Restrictions: 20 pounds Dressing / Incision Call your doctor if your incision/area has: Continuous Slow Oozing, Sudden Increased Bleeding, Increased Pain/ Swelling, Increased Redness and Foul Smelling Discharge Call your doctor if you observe: Fever of 101 or Higher and Using more than 1 pad per hour (for 2 hours) Suture Line Care: Avoid Pulling/Pushing and Avoid Pinching/Bending Cleanse incision/area with: Soap & Water and Keep Dressing Clean & Dry Follow Up Care Please Follow Up With: Luisa Boykin MD When: Call [phone] to make an appointment for an incision check in 1-2 weeks. Test Results: Test results from this visit will be discussed in further detail at your follow- up appointment, if applicable. Discharge Plan Admission Admit Date/Time: 07/19/23 16:21 Attending Provider: Luisa Boykin Primary Care Provider: Care Physician,Lizzy Primary Discharge Orders/Prescriptions Prescriptions: New oxycodone-acetaminophen [Percocet] 5-325 mg tablet 1 tab PO Q6H PRN (Reason: pain) 7 Days Qty: 10 0RF naproxen [naproxen] 500 mg tablet 500 mg PO BID PRN PRN (Reason: Pain) Qty: 30 1RF No Action prenat.vits,jag,ohg-hcyp-imvrw Tablet 1 tab PO DAILY promethazine 25 mg tablet 12.5 mg PO TID PRN (Reason: nausea and vomiting) Qty: 30 3RF ondansetron 4 mg tablet,disintegrating 4 mg PO Q4H PRN (Reason: nausea and vomiting) Qty: 60 2RF Referrals / Follow Up: Care Physician,No Primary [Primary Care Provider] - Disposition Disposition (needs filled in before D/C Order can be placed): Home, Self Care
[2023-07-20] MEDS: Magnesium Sulfate 20 GM/500 ML BAG IV ×2 (03:02→12:16)
[2023-07-20] MEDS: Acetaminophen 500 MG Tablet 1000 MG PO ×3 (05:51→19:09)
[2023-07-20 06:31] LABS: Hematocrit 33.1 % (37-47); Hemoglobin 11.3 g/dL (12.0-15.0); Mean Corp Hgb Conc 34.1 g/dL (32-36); Mean Corpuscular Volume 87.8 fL (81-99); Mean Platelet Vol. 10.1 fl (6.2-12.0); Platelet Count 182 K/mm3 (150-450); RBC Distribution Width CV 12.9 % (11.6-14.6); RBC Distribution Width SD 40.6 fl (35.1-43.9); Red Blood Count 3.77 M/mm3 (4.2-5.4); White Blood Count 10.1 K/mm3 (4.4-11.0)
[2023-07-20 06:35] LABS: Bedside Glucose 102 mg/dL (74-106)
--- NOTE | 2023-07-20 07:14 | PN.OBGYN_ITS ---
Subjective Subjective Patient doing well without complaints. Tolerating PO. lucero in while on mag, got IV bolus overnight. infant feeding well. Denies chest pain, shortness of breath, calf pain/swelling, fevers, chills, lightheadedness. Objective Data Objective Data Vital Signs: Vital Signs Temp Pulse Resp BP Pulse Ox O2 Del Method 97.8 F 73 16 114/79 95 Room Air 07/20/23 07:14 07/20/23 07:14 07/20/23 07:14 07/20/23 07:14 07/20/23 07:14 07/20/23 07:14 Oxygen Delivery Method Room Air Weight: 183 lb Body Mass Index (BMI) 34.5 Intake & Output: Intake and Output for Last 24 Hours 07/18/23 07/19/23 07/20/23 23:59 23:59 23:59 Intake Total 1513.97 / 1513.97 1008.55 / 1008.55 Output Total 960 / 960 270 / 270 Balance 553.97 / 553.97 738.55 / 738.55 Lab / Micro Data 07/20/23 06:15 07/20/23 06:15 Labs: Laboratory Results - last 24 hr 07/19/23 15:15: WBC 7.7, RBC 4.26, Hgb 12.9, Hct 37.0, MCV 86.9, MCH 30.3, MCHC 34.9, RDW Std Deviation 39.4, RDW Coeff of Khloe 12.7, Plt Count 204, MPV 10.3, Immature Gran % (Auto) 0.300, Neut % (Auto) 70.8 H, Lymph % (Auto) 20.3, [place] % (Auto) 7.9, Eos % (Auto) 0.3, Baso % (Auto) 0.4, Absolute Neuts (auto) 5.5, Absolute Lymphs (auto) 1.58, Nucleated RBC % 0, Creatinine 0.76, Est GFR (MDRD) Af Amer 117, Est GFR (MDRD) Non-Af 97, Uric Acid 7.7 H, AST 18, ALT 16, U Random Total Protein 1048.8 H, Urine Creatinine 293.00, Protein/Creatinin Ratio 3580 H 07/19/23 16:00: Syphilis Total Ab Non-reactive, Blood Type O POSITIVE, Antibody Screen NEGATIVE 07/19/23 16:57: POC Glucose 92 07/19/23 20:44: POC Glucose 116 H 07/20/23 06:11: POC Glucose 102 07/20/23 06:15: WBC 10.1, RBC 3.77 L, Hgb 11.3 L, Hct 33.1 L, MCV 87.8, MCH 30.0, MCHC 34.1, RDW Std Deviation 40.6, RDW Coeff of Khloe 12.9, Plt Count 182, MPV 10.1 ROS Constitutional Constitutional: Reports systems reviewed and no addt'l complaints, except as documented Cardiovascular Cardiovascular: Reports systems reviewed and no addt'l complaints, except as documented Respiratory/Chest Respiratory/Chest: Reports systems reviewed and no addt'l complaints, except as documented Gastrointestinal Gastrointestinal: Reports systems reviewed and no addt'l complaints, except as documented Physical Exam Const alert, oriented x3 and no apparent distress HEENT Head and Scalp: atraumatic Resp normal respiratory effort GI soft to palpation and non-tender Inspection: incision intact, healing well and drainage (none) Bimanual Exam - Vag & Uterus: uterus non-tender Uterus Palpation: uterus fundus firm (below Umbilicus) Assessment & Plan (1) Preeclampsia, severe: COMMENT: magnesium sulfate x 24 hours, repeat labs stable, decrease maintenance labetalol to 100 BID (2) delivery delivered: COMMENT: RLTCS SM 37 preeclampsia severe features girl [employer] (3) Rubella non-immune status, antepartum: COMMENT: MMR pp (4) GDM (gestational diabetes mellitus): COMMENT: bs WNL PLAN: Plan s/p LTCS PPD # 1 1. routine post care 2. breast feeding- support given 3. rh positive 4. rubella immune see above for plan details on individual comorbidities
[2023-07-20 07:24] LABS: ALB/GLOB Ratio 0.6 RATIO (0.9-2.4); AST(SGOT) 18 U/L (15-37); Alanine Aminotransfer ALT/SGPT 11 U/L (13-56); Albumin, Serum 1.9 g/dL (3.2-5.0); Alkaline Phosphatase 115 U/L (45-117); Anion Gap 6 (5-15); BUN 12 mg/dL (7-18); BUN/Creat Ratio 15.2 RATIO (10-20); Calcium,Total 7.1 mg/dL (8.5-10.1); Chloride 105 mmol/L (98-107); Creatinine, Serum 0.79 mg/dL (0.55-1.02); EST Glomerular Filtration Rate 92 mL/min (>60); Est Glom Filt Rate - Afr Amer 112 mL/min (>60); Globulin 3.1 g/dL (2.2-4.2); Glucose 105 mg/dL (74-106); Potassium 4.5 mmol/L (3.5-5.1); Sodium Level 134 mmol/L (136-145)
[2023-07-20] MEDS: Ketorolac 30 MG/ML Syringe IV ×3 (08:57→21:11)
[2023-07-20] MEDS: Labetalol 100 MG Tablet PO ×2 (10:00→23:09)
[2023-07-20] MEDS: Senna/Docusate Sodium 1 Tablet PO (10:00)
[2023-07-20] MEDS: Enoxaparin 40 MG/0.4 ML Syringe SC (12:18)
[2023-07-20] MEDS: Ondansetron 4 MG/2 ML Vial IV (12:30)
[2023-07-20] MEDS: 0.9% Saline Lock 10 ML Syringe IV ×3 (15:01→21:11)
--- NOTE | 2023-07-20 16:24 | CASEMGMT ---
Labor and Delivery Social Work Sw informed of need for social work assessment due to mother of baby (MOBMolina Sidhu) presenting with high anxiety. Sw completed chart review and presented to bedside. Sw introduced self to parents. Also present were paternal grandparents. MOB stated that it was ok for sw to complete assessment with grandparents present. Sw completed psychosocial assessment with MOB and father of baby (BRAXTON Gimenez). Sw assessed for any needs, issues or concerns. Sw provided parents with literature regarding signs and symptoms of baby blues and depression/ anxiety. Sw also provided list of resources for MOB to review should she have any needs present themselves. Complete psychosocial assessment to be entered at later date. No issues or concerns at this time. Per sw MOB and baby okay to be discharged when medically ready. Sammy Mary, SALES [employer], [employer]
[2023-07-21] MEDS: Acetaminophen 500 MG Tablet 1000 MG PO ×2 (00:56→06:59)
[2023-07-21 02:36] VITALS: BP 133/86; PULSE 83; RESP 18; TEMP 37; O2SAT 97
[2023-07-21 02:38] VITALS: BP 133/86; PULSE 81
[2023-07-21 08:48] VITALS: BP 134/91; PULSE 106; PULSE 118; O2SAT 97
[2023-07-21 08:50] VITALS: BP 134/91; PULSE 118; RESP 18; TEMP 36.8; O2SAT 98
[2023-07-21] MEDS: Naproxen 500 MG Tablet PO (08:53)
[2023-07-21] MEDS: Senna/Docusate Sodium 1 Tablet PO (08:53)
--- NOTE | 2023-07-21 09:48 | PCM.PN.OB ---
Subjective Subjective Patient doing well without complaints. Tolerating PO. Ambulating and voiding without difficulty. Feeding well. Denies chest pain, shortness of breath, calf pain/swelling, fevers, chills, lightheadedness. Objective Data Objective Data Vital Signs: Vital Signs Temp Pulse Resp BP Pulse Ox O2 Del Method 98.2 F 118 H 18 134/91 H 98 Room Air 07/21/23 08:50 07/21/23 08:50 07/21/23 08:50 07/21/23 08:50 07/21/23 08:50 07/21/23 08:50 Oxygen Delivery Method Room Air Weight: 183 lb Body Mass Index (BMI) 34.5 Intake & Output: Intake and Output for Last 24 Hours 07/19/23 07/20/23 07/21/23 23:59 23:59 23:59 Intake Total 1513.97 / 1513.97 2678.83 / 2678.83 Output Total 960 / 960 1510 / 1510 700 / 700 Balance 553.97 / 553.97 1168.83 / 1168.83 -700 / -700 Lab / Micro Data 07/20/23 06:15 07/20/23 06:15 Physical Exam Const alert, oriented x3 and no apparent distress HEENT Head and Scalp: atraumatic Resp normal respiratory effort GI soft to palpation and non-tender Inspection: incision intact, healing well and drainage (since area marked, no additional drainage. ) Bimanual Exam - Vag & Uterus: uterus non-tender Uterus Palpation: uterus fundus firm (below Umbilicus) Assessment & Plan (1) Preeclampsia, severe: COMMENT: magnesium sulfate x 24 hours, repeat labs stable, decrease maintenance labetalol to 100 BID PLAN: BP stable overnight, no severe range pressures. to monitor at home. parameters given. f/u in office 1 week BP check (2) Rubella non-immune status, antepartum: COMMENT: MMR pp (3) GDM (gestational diabetes mellitus): COMMENT: bs WNL (4) delivery delivered: COMMENT: RLTCS SM 37 preeclampsia severe features girl [place]íbal PLAN: Plan s/p LTCS PPD # 2 1. routine post care 2. breast feeding- support given, in to see 3. rh positive 4. rubella immune 5. plan d/c home today
--- NOTE | 2023-07-21 09:52 | PCM.DC.SUM ---
Providers Date of Admission: 07/19/23 Primary Care Physician: No Primary Care Phys Reason For Visit: REPEAT C- SECTION Diagnosis Discharge Diagnosis (1) Preeclampsia, severe: Status: Acute Code(s): O14.10 - Severe pre-eclampsia, unspecified trimester Plan: BP stable overnight, no severe range pressures. to monitor at home. parameters given. f/u in office 1 week BP check (2) Rubella non-immune status, antepartum: Status: Acute Code(s): O09.899 - Supervision of other high risk pregnancies, unspecified trimester; Z28.39 - Other underimmunization status (3) GDM (gestational diabetes mellitus): Status: Acute Code(s): O24.419 - Gestational diabetes mellitus in , unspecified control (4) delivery delivered: Status: Acute Code(s): O82 - Encounter for delivery without indication Plan s/p LTCS PPD # 2 1. routine post care 2. breast feeding- support given, in to see 3. rh positive 4. rubella immune 5. plan d/c home today Medications at Discharge Home Medications prenat.vits,jag,dpd-buiv-dqpif 1 tab PO DAILY 09/26/22 promethazine 25 mg tablet 12.5 mg (1/2 x 25 mg) PO TID PRN nausea and vomiting #30 tabs 12/21/22 ondansetron 4 mg disintegrating tablet 4 mg PO Q4H PRN nausea and vomiting #60 tabs 01/03/23 labetalol 100 mg tablet 100 mg PO BID #60 tabs 07/20/23 naproxen 500 mg tablet 500 mg PO BID PRN PRN Pain #30 tabs 07/20/23 oxycodone-acetaminophen 5 mg-325 mg tablet (Percocet) 1 tab PO Q6H PRN pain 7 days #10 tabs 07/20/23 Hospital Course Operations section Summary of Care Provided Hospital Course: pt with repeat c/s for severe feature pre-eclampsia. magnesium x24 hours . stable bp on PO labetolol. Physical Exam Const alert, oriented x3 and no apparent distress HEENT Head and Scalp: atraumatic Resp normal respiratory effort GI soft to palpation and non-tender Inspection: incision intact, healing well and drainage (since area marked, no additional drainage. ) Bimanual Exam - Vag & Uterus: uterus non-tender Uterus Palpation: uterus fundus firm (below Umbilicus) Weight / BMI Weight Weight: 183 lb Body Mass Index (BMI) 34.5 ABG / Lab / Microbiology Data 07/20/23 06:15 07/20/23 06:15 D/C Instructions Discharge Diet: No restrictions May shower in (days): 0 May resume sexual activity in: 4-6 weeks Weight Bearing Status: Full weight bearing Call your doctor if your incision/area has: Continuous Slow Oozing, Sudden Increased Bleeding, Increased Pain/ Swelling, Increased Redness and Foul Smelling Discharge Call your doctor if you observe: Fever of 101 or Higher and Using more than 1 pad per hour (for 2 hours) Suture Line Care: Avoid Pulling/Pushing and Avoid Pinching/Bending Cleanse incision/area with: Soap & Water and Keep Dressing Clean & Dry Please Follow Up With: Luisa Boykin MD When: Call [phone] to make an appointment for an incision check in 1-2 weeks. Meaningful Use Info Meaningful Use Diagnoses (Choose all that apply): None applicable Discharge Plan Admission Admit Date/Time: 07/19/23 16:21 Attending Provider: Luisa Boykin Primary Care Provider: Care PhysicianLizzy Primary Instructions Patient Instructions: Understanding Preeclampsia Additional Instructions / Restrictions: monitor blood pressure at home atleast twice a day. call if over 140/90 and immediately if above 160/110. Discharge Orders/Prescriptions Prescriptions: New oxycodone-acetaminophen [Percocet] 5-325 mg tablet 1 tab PO Q6H PRN (Reason: pain) 7 Days Qty: 10 0RF naproxen [naproxen] 500 mg tablet 500 mg PO BID PRN PRN (Reason: Pain) Qty: 30 1RF labetalol 100 mg tablet 100 mg PO BID Qty: 60 2RF No Action prenat.vits,jag,cfk-cuym-hedpr Tablet 1 tab PO DAILY promethazine 25 mg tablet 12.5 mg PO TID PRN (Reason: nausea and vomiting) Qty: 30 3RF ondansetron 4 mg tablet,disintegrating 4 mg PO Q4H PRN (Reason: nausea and vomiting) Qty: 60 2RF Referrals / Follow Up: Care Physician,No Primary [Primary Care Provider] - Disposition Disposition (needs filled in before D/C Order can be placed): Home, Self Care
[2023-07-21] MEDS: Labetalol 100 MG Tablet PO (10:34)
--- NOTE | 2023-07-23 10:24 | CASEMGMT ---
Social Work Assessment Labor and Delivery Unit Patient Address: [address] [place] [address] [address] [place] [address] Phone number: [phone] Date of Referral: 07/20/23 Time of Referral:? 1606 Referred By: Luisa Boykin Date of Intervention: ??07/20/23 Time of Intervention:? 1400 Reason for Referral:? anxiety Sw completed chart review and acknowledges social work consult for maternal history of anxiety. Sw presented to bedside and introduced self to mother of baby (MOB- Thea) and father of baby (FODaly- Pernell). Sw explained reason for sw consult and completed psychosocial assessment. History obtained from: medical records, MOB and FOB Household composition: Currently residing in the family home is MAGGIE CHOWDHURY, their son (Ewa Patino: : 09/21/20) and now their baby. Parents report their housing is safe and secure, no concerns. Patient's parent/guardian status:? ?LUCIANA states that she and MAGGIE have been together for 3 years. They met in High School and reconnected several years ago. NO issues or concerns of domestic violence or intimate partner violence. Medical History: ?LUCIANA is 28 year old, female who is 3, para 1-now 2 following delivery of baby. LUCIANA received routine care during with [facility]. LUCIANA delivered baby at 37 weeks gestation via . Baby girl, named Jose Anguiano was born weighing 7lb 2 oz and her apgars were 8 and 9 at one and five minutes of life respectfully. Baby will be followed by Dr. Johnson for pediatrics. Educational Status:? Both parents graduated from high school. LUCIANA obtained her bachelors degree and MAGGIE obtained his associates degree. Parents deny concerns with reading, learning or comprehension. Financial Status: Both parents are gainfully employed outside of the home. MAGGIE works for an [employer], he is able to take some time off of work. 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 Supplies:?Parents have obtained all necessary baby items, including: car seat, safe sleep space, clothes, diapers and wipes. Childcare/Caregiver(s):? MOB and MAGGIE reports that they will be the primary caregivers to baby while MOB is on maternity leave. When <OB returns to work they have family that help provide childcare. Transportation:?? No transportation barriers at this time, both parents have a drivers license and reliable means of transportation. Programs/Agencies Involved: ???Parents deny linkage to any community resources at this time. Children Services/Legal Issues:?No history of involvement and no issues or concerns warranting a referral to be made at this time. ?? Behavioral Health Issues: ??Mental Health History:??FOB denies mental health history. MOB states that she has been diagnosed with anxiety. MOB denies medication at this time to help with managing her symptoms. MOB states that she is aware of signs and symptoms of baby blues and depression/ anxiety to be on the lookout for. MOB states that she was anxious prior to and during delivery. ? Substance Use History:?MOB denies substance use prior to and during . ? Family History:??Parents deny family history of addiction/ substance use and mental health history. ??? Drug Screens: MOB had urine screen on 01/09/23 and it was negative for all substances. Family/Social Stressors:? Parents deny any stressors or concerns at this time. Support Systems: MOB states that paternal grandparents and maternal grandma are their biggest supports at this time. Depression/Shaken Baby/Safe Sleeping:? Sw educated parents on signs and symptoms of baby blues and depression. Sw provided parents with literature for them to review that included appropriate coping skills to utilize should LUCIANA struggle during her journey. Parents expressed understanding. Sw educated parents on shaken baby prevention and ABCs of safe sleep. Parents expressed understanding. ASSESSMENT:? MOB and baby currently admitted following labor and delivery. MOB required delivery and was anxious leading up to delivery. MOB appears tired, currently on magnesium, but did participate in assessment. Paternal grandparents present at time sw met with parents. MOB stated that it was ok to complete psychosocial assessment with grandparents present in room. Resources and literature provided to parents for their review. Parents receptive and appreciative of sw involvement and support. PLAN:? MOB and baby to be discharged when medically ready. ?No other services requested or indicated. Sammy Mary, BENZENE WASHER, AVIATION SAFETY TECHNICIAN
== END 2023-07-21 12:50 | disposition home or self-care (01) | DRG 788 ==
LOC: WPOUT 16:28 → WP 16:28
PROVIDERS: Admitting Provider Obstetrics & Gynecology; Referring Provider Obstetrics & Gynecology; Visit Provider Obstetrics & Gynecology
DX: O14.14 Severe pre-eclampsia complicating childbirth (principal); O99.324 Drug use complicating childbirth; F12.90 Cannabis use, unspecified, uncomplicated; O24.429 Gestational diabetes mellitus in childbirth, unspecified control; Z87.891 Personal history of nicotine dependence; Z37.0 Single live birth; Z3A.37 37 weeks gestation of pregnancy; F12.91 Cannabis use, unspecified, in remission
CPT/HCPCS: 59025; 59050; 80053; 82565; 82570; 82962; 84156; 84450; 84460; 84550; 85025; 85027; 86780; 86850; 86900; 86901; 99221; J7120; A4216; G0378; J2405

== ENCOUNTER 2023-07-24 18:20 | Outpatient (CLI) | payer OTHER, SELFPAY ==
[2023-07-24] VITALS (9 sets, daily range): BP systolic 133–171; BP diastolic 79–108; PULSE 80–111; TEMP 36.6–36.9; O2SAT 99; BMI 31.7
[2023-07-24] MEDS: NIFEdipine 10 MG Capsule PO (19:21)
--- NOTE | 2023-07-24 19:32 | NURSING ---
pt rule out pre-e.
[2023-07-24 19:45] LABS: Mean Corp Hgb Conc 34.3 g/dL (32-36); Mean Corpuscular Hgb 30.9 pg (27.0-32.0); Mean Corpuscular Volume 90.2 fL (81-99); Mean Platelet Vol. 8.7 fl (6.2-12.0); Platelet Count 317 K/mm3 (150-450); RBC Distribution Width CV 12.9 % (11.6-14.6); RBC Distribution Width SD 41.8 fl (35.1-43.9); Red Blood Count 3.88 M/mm3 (4.2-5.4); White Blood Count 7.5 K/mm3 (4.4-11.0)
[2023-07-24 20:00] LABS: AST(SGOT) 25 U/L (15-37); Alanine Aminotransfer ALT/SGPT 42 U/L (13-56); EST Glomerular Filtration Rate 127 mL/min (>60); Est Glom Filt Rate - Afr Amer 154 mL/min (>60); Estimated Creatinine Clearance 105.34 ml/min; Uric Acid 5.6 mg/dL (2.6-6.0)
--- NOTE | 2023-07-24 20:54 | OB.TRI.PN ---
Progress Notes Date of Service: 07/24/23 Progress Note: patient evaluted for elevated bps , she has been on labetalol but pressures were increasing today. upon presentation bps were initially severely elevated but responded to procardia and labs were WNL. patient stable to discharge to home with close monitoring and follow up, plan continue procardia instead of labetalol. check home bps and fu in office sunday. Laboratory Studies: Laboratory Tests 07/24/23 Range/Units 19:37 WBC 7.5 (4.4-11.0) K/mm3 RBC 3.88 L (4.2-5.4) M/mm3 Hgb 12.0 (12.0-15.0) g/dL Hct 35.0 L (37-47) % MCV 90.2 (81-99) fL MCH 30.9 (27.0-32.0) pg MCHC 34.3 (32-36) g/dL RDW Std Deviation 41.8 (35.1-43.9) fl RDW Coeff of Khloe 12.9 (11.6-14.6) % Plt Count 317 (150-450) K/mm3 MPV 8.7 (6.2-12.0) fl Creatinine 0.60 (0.55-1.02) mg/dL Estim Creat Clear Calc 105.34 ml/min Est GFR (MDRD) Af Amer 154 (>60) mL/min Est GFR (MDRD) Non-Af 127 (>60) mL/min Uric Acid 5.6 (2.6-6.0) mg/dL AST 25 (15-37) U/L ALT 42 (13-56) U/L Charges/Coding Procedures Urinary/Genital [id number]: No Charge
[2023-07-24] MEDS: NIFEdipine 30 MG Tablet PO (21:24)
== END 2023-07-24 21:33 | disposition home or self-care (01) ==
LOC: WPOUT 18:26 → WP 18:26
PROVIDERS: Obstetrics & Gynecology; Referring Provider Advanced Practice Midwife; Visit Provider Advanced Practice Midwife
DX: O99.893 Other specified diseases and conditions complicating puerperium (principal); R73.9 Hyperglycemia, unspecified
CPT/HCPCS: 36415; 82565; 84450; 84460; 84550; 85027; 99221; G0378

== ENCOUNTER → 2025-07-10 | Outpatient (CLI) | payer BC, SELFPAY ==
[2025-07-10 13:00] LABS: Creatinine, Urine (random) 18.20 mg/dL (28.00-217.00); Protein, Urine (Random) < 6.0 mg/dL (0.0-12.0); Protein:Creat Ratio UNABLE TO CALCULATE mg/g CRE (0-200)
[2025-07-14 01:07] LABS: Chlamydia By Nucleic Acid AMP Negative (Negative); Gonococcus By Nucleic Acid AMP Negative (Negative)
== END | disposition home or self-care (01) ==
LOC: LABSPEC 11:25
PROVIDERS: Visit Provider Advanced Practice Midwife
DX: O00.90 Unspecified ectopic pregnancy without intrauterine pregnancy (principal)
CPT/HCPCS: 82570; 84156; 87086; 87088; 87491; 87591

== ENCOUNTER → 2025-08-11 | Outpatient (CLI) | payer BC, SELFPAY ==
[2025-08-11 16:37] LABS: Hematocrit 39.9 % (37-47); Hemoglobin 14.2 g/dL (12.0-15.0); Immature Granulocytes Count 0.020 X10^3/uL (0.0-0.0); Mean Corp Hgb Conc 35.6 g/dL (32-36); Mean Corpuscular Volume 87.9 fL (81-99); Mean Platelet Vol. 8.6 fl (6.2-12.0); NRBC Flagged by Analyzer 0 % (0-5); Platelet Count 266 K/mm3 (150-450); RBC Distribution Width CV 12.5 % (11.6-14.6); RBC Distribution Width SD 40.4 fl (35.1-43.9); Red Blood Count 4.54 M/mm3 (4.2-5.4); White Blood Count 9.6 K/mm3 (4.4-11.0)
[2025-08-11 17:46] LABS: AST(SGOT) 17 U/L (<=31); Alanine Aminotransfer ALT/SGPT 16 U/L (<=34); Albumin, Serum 4.1 g/dL (3.5-5.0); Alkaline Phosphatase 71 U/L (35-104); Anion Gap 13 (7-18); BUN 8 mg/dL (4-19); BUN/Creat Ratio 13.4 RATIO (10-20); Calcium,Total 8.9 mg/dL (7.6-11.0); Carbon Dioxide 21.6 mmol/L (20.0-29.0); Chloride 101 mmol/L (96-106); Globulin 2.7 g/dL (2.2-4.2); Glucose 93 mg/dL (70-99); HIV Nonreactive (Nonreactive); Hepatitis B Surface Antigen Nonreactive (Nonreactive); Hepatitis C Antibody Nonreactive (Nonreactive); Potassium 3.8 mmol/L (3.5-5.1); Syphilis Antibodies Nonreactive (Nonreactive)
== END | disposition home or self-care (01) ==
PROVIDERS: Advanced Practice Midwife; Visit Provider Nurse Practitioner Women's Health
DX: O09.90 Supervision of high risk pregnancy, unspecified, unspecified trimester (principal); Z3A.00 Weeks of gestation of pregnancy not specified
CPT/HCPCS: 36415; 80053; 83036; 85025; 86703; 86762; 86780; 86803; 86850; 86900; 86901; 87340